=== PATIENT | male | born 1935 | race Caucasian/White ===

== ENCOUNTER → 2017-04-20 | Outpatient (CLI) | payer BC ==
--- NOTE | 2017-04-20 08:46 | DIAGNOSTIC IMAGING REPORT ---
ABDOMEN COMPLETE (US) CLINICAL HISTORY: 81 years-old Male with acute right upper quadrant abdominal pain. TECHNIQUE: Multiple real time sonographic images of the abdomen were obtained assessing matamoros-scale appearance. FINDINGS: PANCREAS: The pancreas is partially obscured by bowel gas. There are several cystic lesions noted within the pancreas involving the head and body, largest of which is within the pancreatic body, 1.7 x 1.6 x 0.9 cm. No pancreatic ductal dilation identified. No vascular pancreatic lesions are identified. There is moderate pancreatic atrophy. LIVER: Liver is mildly echogenic suggesting fatty infiltration. There is a focal cyst of the right hepatic lobe which measures up to 1.5 cm. There is no ascites. GALLBLADDER: There are several gallstones noted layering within the gallbladder lumen. No pericholecystic fluid collections or focal gallbladder wall thickening. Negative sonographic Villagran's sign. The common bile duct measures 0.8 cm. RIGHT KIDNEY: The right kidney measures 12.1 cm in length there is mildly increased echogenicity of the renal parenchyma suggesting chronic medical renal disease No nephrolithiasis or hydronephrosis. Small cyst of the interpolar right kidney is seen, 0.5 cm LEFT KIDNEY: The left kidney measures 8.6 cm in length and is moderately atrophic with increased parenchymal echogenicity. No nephrolithiasis or hydronephrosis. SPLEEN: The spleen measures 8.2 cm and is normal in echotexture. No focal lesions are identified. VASCULATURE: Proximal abdominal aorta measures 1.6 x 1.2 cm. Mid abdominal aorta measures 1.5 x 1.7 cm. Distal abdominal aorta measures 1.2 x 1.4 cm. Imaged IVC is unremarkable. IMPRESSION: 1. Cholelithiasis without sonographic evidence of acute cholecystitis. 2. Several cystic lesions of the pancreas are seen involving the body and tail measuring up to 1.7 cm suggesting sidebranch IPMN's. These findings can be further evaluated with CT pancreatic protocol if of further clinical concern. 3. Evidence of chronic medical renal disease with moderate left kidney atrophy. 4. Increased echogenicity of the liver suggests fatty infiltration with 1.5 cm right hepatic lobe cyst. The above report was generated using voice recognition software. It may contain grammatical, syntax or spelling errors. Electronically signed by: Roberto Yu M.D. 04/20/2017 8:44 AM Dictated Date/Time: 04/20/2017 8:37 AM
[2017-04-20 11:10] LABS: BASO % 0.3 %; BASO ABS # 0.02 K/uL (0-0.2); COMPLETE YES; EOS % 2.8 %; HEMATOCRIT 42.8 % (42-52); IG% 0.2 %; LYMPH % 29.6 %; LYMPH ABS # 1.93 K/uL (1.2-3.4); MEAN CELL VOLUME 92.8 fL (80-100); MEAN CORPUSCULAR HEMOGLOBIN 31.2 pg (25-34); MEAN CORPUSCULAR HGB CONC 33.6 g/dl (32-36); MEAN PLATELET VOLUME 10.3 fL (7.4-10.4); MONO % 10.1 %; PLATELET COUNT 198 K/uL (130-400); RED BLOOD COUNT 4.61 M/uL (4.7-6.1); WHITE BLOOD COUNT 6.52 K/uL (4.8-10.8)
[2017-04-20 11:28] LABS: ALT/SGPT 46 U/L (12-78); BLOOD UREA NITROGEN 19 mg/dl (7-18); BUN/CREATININE RATIO 16.8 (10-20); CALCIUM 8.8 mg/dl (8.5-10.1); CARBON DIOXIDE 29 mmol/L (21-32); CHLORIDE 107 mmol/L (98-107); GLUCOSE 100 mg/dl (70-99); POTASSIUM 3.9 mmol/L (3.5-5.1); SODIUM 142 mmol/L (136-145)
[2017-04-20 11:33] LABS: ALB/GLOB RATIO 1.2 (0.9-2); ALKALINE PHOSPHATASE 63 U/L (45-117); AST/SGOT 26 U/L (15-37)
== END | disposition home or self-care (01) ==
LOC: C.ULTRBC 07:27
PROVIDERS: ATTEND Family Medicine
DX: R10.11 Right upper quadrant pain (principal)

== ENCOUNTER → 2017-05-06 | Outpatient (CLI) | payer BC ==
[~2017-05-06] MED LIST: OPTIRAY 320 IV PRN
--- NOTE | 2017-05-06 13:29 | DIAGNOSTIC IMAGING REPORT ---
PANCREAS (ABDOMEN) COMBO HISTORY: Abnormal ultrasound . LESION OF PANCREAS TECHNIQUE: Multiaxial CT images of the abdomen were performed both before and after the intravenous administration of contrast to evaluate the pancreas. COMPARISON STUDY: Abdominal ultrasound 04/20/2017. FINDINGS: A few bibasilar linear densities favor subsegmental atelectasis or scarring. No suspicious lytic or blastic osseous lesions. Cholelithiasis. A 7 mm right adrenal gland nodule. A 1.7 cm right hepatic cyst. No solid hepatic masses. The spleen is unremarkable. A 5 mm hypodense lesion within the right kidney is too small to characterize but favors a cyst. The left kidney is mildly atrophic. No renal stones or hydronephrosis. The main portal vein and superior mesenteric vein are patent. No retroperitoneal lymphadenopathy. 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 The common bile duct and main pancreatic duct are normal in caliber. Mild inflammatory change surrounding a few of the small bowel loops within the left abdomen. No evidence for bowel obstruction. Colonic diverticulosis. No definite enhancing pancreatic masses. There are least 7 hypodense lesions within the pancreatic head and body. Dominant lesion within the uncinate process measures 1.5 cm. Some these are too small to characterize. The larger lesions do not appear to demonstrate significant enhancement and likely represent cystic lesions of the pancreas. 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 IMPRESSION: 1. Confirmation of the multiple hypodense lesions seen within the head and body of the pancreas which do not appear to enhance. 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 One year follow-up can be performed to ensure stability. 2. Cholelithiasis. 3. 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 4. Mild inflammatory change surrounding a few loops of small bowel within the left side the abdomen. This favors a mild enteritis. 5. Additional findings as described above. Electronically signed by: Moe Haji M.D. 05/06/2017 1:27 PM Dictated Date/Time: 05/06/2017 1:15 PM
== END | disposition home or self-care (01) ==
LOC: C.CTS 12:03
PROVIDERS: ATTEND Family Medicine
DX: K86.9 Disease of pancreas, unspecified (principal); K80.20 Calculus of gallbladder without cholecystitis without obstruction; I71.4 Abdominal aortic aneurysm, without rupture; K63.89 Other specified diseases of intestine

== ENCOUNTER 2017-08-27 13:41 | Emergency (ER) | payer BC ==
[~2017-08-27] VITALS: Ht 172.7 cm; Wt 77.9 kg
[2017-08-27 13:57] VITALS: TEMP 36.7; Ht 172.7 cm; Wt 77.9 kg
[2017-08-27] MEDS ORDERED: ALBUT/IPRATROP 3MG/0.5MG NEB 3 ML VIAL INH STA (15:46)
--- NOTE | 2017-08-27 15:49 | EMERGENCY ROOM VISIT NOTE ---
History Report prepared by Fox: Tati Salinas Under the Supervision of: Dr. Andrew North M.D. First contact with patient: 15:39 Chief Complaint: COUGH Stated Complaint: COUGHING Nursing Triage Summary: pt reports cough nonproductive, weakness . denies sorethroat, fevers, headaches History of Present Illness The patient is a 82 year old male who presents to the Emergency Room with complaints of a persistent cough that began 3-4 days ago. The patient states his coughing has been causing discomfort in around his sternum, but denies any chest pain. He denies having any fevers, chills, nausea, vomiting, or diarrhea. The patient denies a history of smoking, COPD, CHF, or any heart problems. Source of History: patient Onset: 3-4 days ago Position: other (global) Quality: other (coughing) Timing: other (persistent) Associated Symptoms: No fevers, No chills, No chest pain, No nausea, No vomiting, No diarrhea Review of Systems See HPI for pertinent positives and negatives. A total of ten systems were reviewed and were otherwise negative. Family History Patient reports no known family medical history. Social History Smoking Status: Never Smoker Smokeless Tobacco Use: No Alcohol Use: none Drug Use: none Marital Status: Housing Status: lives with significant other Occupation Status: retired Current/Historical Medications Scheduled Amlodipine/Benazepril (Lotrel 10MG/20MG), 1 CAP PO DAILY Atorvastatin (Lipitor), 20 MG PO QPM Azithromycin (Zithromax), 250 MG PO DAILY Coenzyme Q10 (Ubidecarenone) (Co Q10), 100 MG PO QAM Diphenhydramine Hcl (Benadryl), 50 MG PO HS Ferrous Sulfate (Ferrous Sulfate), 325 MG PO QAM Multivitamin (Multivitamin), 1 TAB PO DAILY Oseltamivir (Tamiflu), 75 MG PO BID Potassium Chloride (Micro-K Ext Rel), 5 MEQ PO QAM Allergies Coded Allergies: No Known Allergies (Unverified , 08/27/17) Physical Exam Vital Signs Date Time Temp Pulse Resp B/P (MAP) Pulse Ox O2 Delivery O2 Flow Rate FiO2 08/27/17 18:19 77 142/67 95 08/27/17 16:32 78 08/27/17 16:14 71 150/81 95 Room Air 08/27/17 16:14 94 Room Air 08/27/17 13:57 36.7 81 18 101/62 96 Room Air Physical Exam GENERAL: Awake, alert, well-appearing, in no distress HENT: Dry mucous membranes. Normocephalic, atraumatic. Oropharynx unremarkable. EYES: Normal conjunctiva. Sclera non-icteric. NECK: Supple. No nuchal rigidity. FROM. No JVD. RESPIRATORY: Scant wheezes at bases otherwise clear. CARDIAC: Regular rate, normal rhythm. Extremities warm and well perfused. Pulses equal. ABDOMEN: Soft, non-distended. No tenderness to palpation. No rebound or guarding. No masses. RECTAL: Deferred. MUSCULOSKELETAL: Chest examination reveals no tenderness. The back is symmetrical on inspection without obvious abnormality. There is no CVA tenderness to palpation. No joint edema. LOWER EXTREMITIES: Calves are equal size bilaterally and non-tender. No edema. No discoloration. NEURO: Normal sensorium. No sensory or motor deficits noted. SKIN: No rash or jaundice noted. Medical Decision & Procedures ER Provider Diagnostic Interpretation: Radiology results as stated below per my review and radiologist interpretation: CHEST ONE VIEW PORTABLE CLINICAL HISTORY: Chest pain. COMPARISON STUDY: No previous studies for comparison. FINDINGS: Lung volumes are normal. No pneumothorax or pleural effusion is present. Linear left basilar opacity is suggestive of atelectasis. There is no evidence of pulmonary edema. Cardiac size is normal. Patient is mildly rotated. There is no evidence of pulmonary edema. IMPRESSION: No acute cardiopulmonary findings. Electronically signed by: Keith Hassan M.D. 08/27/2017 4:30 PM Dictated Date/Time: 08/27/2017 4:29 PM Laboratory Results 08/27/17 16:30 Red Blood Count 4.81, Mean Corpuscular Volume 92.1, Mean Corpuscular Hemoglobin 31.2, Mean Corpuscular Hemoglobin Concent 33.9, Mean Platelet Volume 10.4, Neutrophils (%) (Auto) 55.9, Lymphocytes (%) (Auto) 23.5, Monocytes (%) (Auto) 17.9, Eosinophils (%) (Auto) 1.9, Basophils (%) (Auto) 0.5, Neutrophils # (Auto ) 2.09, Lymphocytes # (Auto) 0.88, Monocytes # (Auto) 0.67, Eosinophils # (Auto ) 0.07, Basophils # (Auto) 0.02 08/27/17 16:30 Test 08/27/17 16:30 White Blood Count 3.74 K/uL (4.8-10.8) Red Blood Count 4.81 M/uL (4.7-6.1) Hemoglobin 15.0 g/dL (14.0-18.0) Hematocrit 44.3 % (42-52) Mean Corpuscular Volume 92.1 fL (80-100) Mean Corpuscular Hemoglobin 31.2 pg (25-34) Mean Corpuscular Hemoglobin Concent 33.9 g/dl (32-36) Platelet Count 152 K/uL (130-400) Mean Platelet Volume 10.4 fL (7.4-10.4) Neutrophils (%) (Auto) 55.9 % Lymphocytes (%) (Auto) 23.5 % Monocytes (%) (Auto) 17.9 % Eosinophils (%) (Auto) 1.9 % Basophils (%) (Auto) 0.5 % Neutrophils # (Auto) 2.09 K/uL (1.4-6.5) Lymphocytes # (Auto) 0.88 K/uL (1.2-3.4) Monocytes # (Auto) 0.67 K/uL (0.11-0.59) Eosinophils # (Auto) 0.07 K/uL (0-0.5) Basophils # (Auto) 0.02 K/uL (0-0.2) RDW Standard Deviation 49.8 fL (36.4-46.3) RDW Coefficient of Variation 14.6 % (11.5-14.5) Immature Granulocyte % (Auto) 0.3 % Immature Granulocyte # (Auto) 0.01 K/uL (0.00-0.02) Anion Gap 8.0 mmol/L (3-11) Est Creatinine Clear Calc Drug Dose 41.5 ml/min Estimated GFR () 56.7 Estimated GFR (Non- 48.9 BUN/Creatinine Ratio 12.1 (10-20) Calcium Level 8.4 mg/dl (8.5-10.1) Total Bilirubin 0.4 mg/dl (0.2-1) Direct Bilirubin < 0.1 mg/dl (0-0.2) Aspartate Amino Transf (AST/SGOT) 56 U/L (15-37) Alanine Aminotransferase (ALT/SGPT) 76 U/L (12-78) Alkaline Phosphatase 56 U/L (45-117) Troponin I < 0.015 ng/ml (0-0.045) Total Protein 7.2 gm/dl (6.4-8.2) Albumin 3.5 gm/dl (3.4-5.0) Lipase 212 U/L (73-393) Influenza Type A Antigen POS for Influ A (NEG) Influenza Type B Antigen Neg for Influ B (NEG) Laboratory results reviewed by me Medications Administered Medications (Trade) Dose Ordered Sig/Roman Route Start Time Stop Time Status Last Admin Dose Admin Albuterol/ Ipratropium (Duoneb) 3 ml NOW STAT INH 08/27/17 15:46 08/27/17 15:49 DC 08/27/17 16:36 3 ML Sodium Chloride 1,000 ml @ 999 mls/hr Q1H1M STAT IV 08/27/17 15:56 08/27/17 16:56 DC 08/27/17 16:37 999 MLS/HR Azithromycin (Zithromax Tab) 500 mg NOW ONCE PO 08/27/17 17:45 08/27/17 17:46 DC 08/27/17 17:51 500 MG Oseltamivir Phosphate (Tamiflu Cap) 75 mg NOW STAT PO 08/27/17 17:36 08/27/17 17:39 DC 08/27/17 17:50 75 MG Albuterol (Ventolin Hfa Inhaler) 2 puffs NOW ONCE INH 08/27/17 17:45 08/27/17 17:46 DC 08/27/17 17:52 2 PUFFS ECG Indication: other (cough) Rate (beats per minute): 67 Rhythm: normal sinus Findings: no acute ischemic change, other (normal axis) ED Course 1544: The patient was evaluated in room C2. A complete history and physical exam was performed. Medical Decision I reviewed the patient's past medical history, medications, and the nursing notes as described above. The patient's presentation and history were concerning for pneumonia, bronchitis , ACS, CHF, PE, and URI. The patient is an 82-year-old gentleman who presents emergency department with cough congestion and shortness of breath per hpi. Arrival the patient is in no acute distress, afebrile stable vital signs. On exam the patient has scant wheezes at the bases but otherwise clear. WBC 3.9. Influenza A positive. Labs otherwise unremarkable. Chest x-ray negative for pneumonia. Patient feeling improved after nebulizer. Will give MDI for home. Additionally given the patient's age and persistent cough will treat with Azithromycin. Influenza A also positive and question of symptoms within 48 hours. Thus, we'll treat with Tamiflu. Patient counseled strict return instructions given his age and his positive Flu. PCP f/u. Findings and plan for follow-up reviewed with patient. Patient agreeable and d/c'd per discharge instructions. Medication Reconcilliation Current Medication List: was personally reviewed by me Impression Primary Impression: Acute bronchitis Additional Impression: Influenza A Scribe Attestation The scribe's documentation has been prepared under my direction and personally reviewed by me in its entirety. I confirm that the note above accurately reflects all work, treatment, procedures, and medical decision making performed by me. Departure Information Dispostion Home / Self-Care Prescriptions Oseltamivir (Tamiflu) 75 Mg Cap 75 MG PO BID for 5 Days, #10 CAP Prov: Andrew North M.D. 08/27/17 Azithromycin (Zithromax) 250 Mg Tab 250 MG PO DAILY, #4 TAB Prov: Andrew North M.D. 08/27/17 Referrals Fortino Mitchell MD (PCP) Forms HOME CARE DOCUMENTATION FORM, IMPORTANT VISIT INFORMATION Patient Instructions ED Bronchitis Asthmatic, ED Flu, My [facility] Additional Instructions Please follow up with your primary care physician on Wednesday for re-evaluation. You were found to have the flu as well as a likely bronchitis. Otherwise, your exam, EKG, chest xray, and lab results did not show signs of an emergent condition at this time. Tamiflu and Azithromycin as directed. Drink plenty of fluids to ensure hydration. Return to the emergency department for worsening symptoms as described in the accompanying instructions. Problem Qualifiers
[2017-08-27] MEDS ORDERED: SODIUM CHLORIDE 0.9% 1000ML 1,000 ML IV STA (15:56)
[2017-08-27] MEDS ORDERED: COEN1CAP28 PO (16:03)
[2017-08-27] MEDS ORDERED: POTA10CA28 PO (16:03)
[2017-08-27] MEDS ORDERED: MULT-506 PO (16:03)
[2017-08-27] MEDS ORDERED: AMLO10CA PO (16:03)
[2017-08-27] MEDS ORDERED: ATOR-22 PO (16:03)
[2017-08-27] MEDS ORDERED: FERR1TAB62 PO (16:03)
[2017-08-27] MEDS ORDERED: DIPH25CA5 PO (16:03)
[2017-08-27 16:14] VITALS: O2SAT 94
--- NOTE | 2017-08-27 16:31 | DIAGNOSTIC IMAGING REPORT ---
CHEST ONE VIEW PORTABLE CLINICAL HISTORY: Chest pain. COMPARISON STUDY: No previous studies for comparison. FINDINGS: Lung volumes are normal. No pneumothorax or pleural effusion is present. Linear left basilar opacity is suggestive of atelectasis. There is no evidence of pulmonary edema. Cardiac size is normal. Patient is mildly rotated. There is no evidence of pulmonary edema. IMPRESSION: No acute cardiopulmonary findings. Electronically signed by: Keith Hassan M.D. 08/27/2017 4:30 PM Dictated Date/Time: 08/27/2017 4:29 PM
[2017-08-27 17:03] LABS: BASO % 0.5 %; BASO ABS # 0.02 K/uL (0-0.2); EOS % 1.9 %; EOS ABS # 0.07 K/uL (0-0.5); HEMATOCRIT 44.3 % (42-52); IG# 0.01 K/uL (0.00-0.02); LYMPH % 23.5 %; LYMPH ABS # 0.88 K/uL (1.2-3.4); MEAN CELL VOLUME 92.1 fL (80-100); MEAN CORPUSCULAR HEMOGLOBIN 31.2 pg (25-34); MEAN CORPUSCULAR HGB CONC 33.9 g/dl (32-36); MEAN PLATELET VOLUME 10.4 fL (7.4-10.4); MONO % 17.9 %; MONO ABS # 0.67 K/uL (0.11-0.59); NEUT % 55.9 %; NEUT ABS # 2.09 K/uL (1.4-6.5); PLATELET COUNT 152 K/uL (130-400); RED CELL DISTRIBUTION WIDTH CV 14.6 % (11.5-14.5); RED CELL DISTRIBUTION WIDTH SD 49.8 fL (36.4-46.3); WHITE BLOOD COUNT 3.74 K/uL (4.8-10.8)
[2017-08-27 17:15] LABS: ALBUMIN 3.5 gm/dl (3.4-5.0); ALKALINE PHOSPHATASE 56 U/L (45-117); ALT/SGPT 76 U/L (12-78); AST/SGOT 56 U/L (15-37); BLOOD UREA NITROGEN 16 mg/dl (7-18); CALCIUM 8.4 mg/dl (8.5-10.1); CARBON DIOXIDE 26 mmol/L (21-32); CREATININE 1.35 mg/dl (0.60-1.40); GLUCOSE 83 mg/dl (70-99); LIPASE 212 U/L (73-393); POTASSIUM 3.9 mmol/L (3.5-5.1); SODIUM 138 mmol/L (136-145)
[2017-08-27 17:20] LABS: TOTAL PROTEIN 7.2 gm/dl (6.4-8.2)
[2017-08-27 17:33] LABS: INFLUENZA B ANTIGEN Neg for Influ B (NEG)
[2017-08-27] MEDS ORDERED: OSELTAMIVIR PHOSPHATE 75 MG CAP PO STA (17:36)
[2017-08-27] MEDS ORDERED: AZIT250T PO (17:44)
[2017-08-27] MEDS ORDERED: OSEL75CA12 PO (17:44)
[2017-08-27] MEDS ORDERED: ALBUTEROL HFA 8 GM INHALER INH ONE (17:45)
[2017-08-27] MEDS ORDERED: AZITHROMYCIN 250 MG TAB PO ONE (17:45)
[2017-08-27 18:19] VITALS: BP 142/67; PULSE 77; O2SAT 95
== END 2017-08-27 18:20 | disposition home or self-care (01) ==
LOC: C.EDB 13:43 → C.EDC 18:20
DX: J20.9 Acute bronchitis, unspecified (principal); J11.1 Influenza due to unidentified influenza virus with other respiratory manifestations

== ENCOUNTER 2017-08-30 12:58 | Emergency (ER) | payer BC ==
[~2017-08-30] VITALS: Ht 172.7 cm; Wt 76.8 kg
[~2017-08-30 12:58] MED LIST changes: +AMLO10CA PO; +ATOR-22 PO; +AZIT250T PO; +COEN1CAP28 PO; +DIPH25CA5 PO; +FERR1TAB62 PO; +MULT-506 PO; -OPTIRAY 320 IV PRN; +OSEL75CA12 PO; +POTA10CA28 PO
[2017-08-30 13:03] VITALS: TEMP 36.9; Ht 172.7 cm; Wt 76.8 kg
[2017-08-30] MEDS ORDERED: SODIUM CHLORIDE 0.9% 500ML 500 ML IV STA (13:13)
--- NOTE | 2017-08-30 13:37 | DIAGNOSTIC IMAGING REPORT ---
CHEST ONE VIEW PORTABLE CLINICAL HISTORY: EVALUATE ALTERED MENTAL STATUS/WEAKNESS COMPARISON STUDY: 08/27/2017 FINDINGS: Minimal platelike atelectasis left base unchanged from the prior study. Lungs otherwise appear clear. Diaphragms are smooth. IMPRESSION: No acute process. No change from the prior exam. The above report was generated using voice recognition software. It may contain grammatical, syntax or spelling errors. Electronically signed by: Finn Ferrer M.D. 08/30/2017 1:35 PM Dictated Date/Time: 08/30/2017 1:34 PM
--- NOTE | 2017-08-30 13:57 | EMERGENCY ROOM VISIT NOTE ---
History Report prepared by Fox: iLlliana Wright Under the Supervision of: Dr. Meek Ferrera M.D. First contact with patient: 13:06 Chief Complaint: COUGH Stated Complaint: COUGH, SHAKES History of Present Illness The patient is an 82 year old male who presents to the Emergency Room with complaints of persistent flu symptoms starting around 1 week ago. The patient was seen in the ED 3 days ago and diagnosed with influenza A. He had a negative chest X-ray. He was discharged home with an inhaler, Tamiflu, and Zithromax. His symptoms have not improved or worsened over the past 3 days. He is still coughing, but not as much. He is feeling shaky. He denies any fever, vomiting, or diarrhea. He has been eating and drinking well. He had his flu shot this season. His has had flu symptoms also. He denies any history of pneumonia or lung disease. Source of History: patient Onset: 1 week ago Position: other (global) Quality: other (flu symptoms) Timing: other (persistent) Associated Symptoms: + cough, No fevers, No vomiting, No diarrhea Note: Pt reports feeling shaky. Review of Systems See HPI for pertinent positives & negatives. A total of 10 systems reviewed and were otherwise negative. Past Medical & Surgical Medical Problems: (1) Hypertension Family History FH: heart disease Hypertension Social History Smoking Status: Never Smoker Alcohol Use: occasionally Drug Use: none Marital Status: Housing Status: lives with significant other Occupation Status: retired Current/Historical Medications Scheduled Amlodipine/Benazepril (Lotrel 10MG/20MG), 1 CAP PO DAILY Atorvastatin (Lipitor), 20 MG PO QPM Azithromycin (Zithromax), 250 MG PO DAILY Coenzyme Q10 (Ubidecarenone) (Co Q10), 100 MG PO QAM Diphenhydramine Hcl (Benadryl), 50 MG PO HS Ferrous Sulfate (Ferrous Sulfate), 325 MG PO QAM Multivitamin (Multivitamin), 1 TAB PO DAILY Oseltamivir (Tamiflu), 75 MG PO BID Potassium Chloride (Micro-K Ext Rel), 5 MEQ PO QAM Allergies Coded Allergies: No Known Allergies (Unverified , 08/30/17) Physical Exam Vital Signs Date Time Temp Pulse Resp B/P (MAP) Pulse Ox O2 Delivery O2 Flow Rate FiO2 08/30/17 14:31 76 20 127/69 94 Room Air 08/30/17 13:51 83 08/30/17 13:47 95 Room Air 08/30/17 13:03 36.9 95 18 142/80 93 Room Air Physical Exam GENERAL: Patient is in no acute distress. HEENT: No acute trauma, normocephalic atraumatic, mucous membranes moist, no nasal congestion, no scleral icterus. NECK: No stridor, no adenopathy, no meningismus, trachea is midline. LUNGS: Clear to auscultation bilaterally, no wheeze, no rhonchi, breath sounds equal. HEART: Without murmurs gallops or rubs, regular rate and rhythm. ABDOMEN: Soft, nontender, bowel sounds positive, no hernias, no peritonitis. EXTREMITIES: No cyanosis or edema, full range of motion of all the joints without pain or difficulty, no signs for acute trauma. NEUROLOGIC: Oriented x 3, no acute motor or sensory deficits, no focal weakness. SKIN: No rash, no jaundice, no diaphoresis. Medical Decision & Procedures ER Provider Diagnostic Interpretation: X-ray results as stated below per interpretation by me and the radiologist: CHEST ONE VIEW PORTABLE CLINICAL HISTORY: EVALUATE ALTERED MENTAL STATUS/WEAKNESS COMPARISON STUDY: 08/27/2017 FINDINGS: Minimal platelike atelectasis left base unchanged from the prior study. Lungs otherwise appear clear. Diaphragms are smooth. IMPRESSION: No acute process. No change from the prior exam. The above report was generated using voice recognition software. It may contain grammatical, syntax or spelling errors. Electronically signed by: Finn Ferrer M.D. 08/30/2017 1:35 PM Dictated Date/Time: 08/30/2017 1:34 PM Laboratory Results 08/30/17 13:30 Red Blood Count 4.63, Mean Corpuscular Volume 92.0, Mean Corpuscular Hemoglobin 31.5, Mean Corpuscular Hemoglobin Concent 34.3, Mean Platelet Volume 10.0, Neutrophils (%) (Auto) 55.7, Lymphocytes (%) (Auto) 26.8, Monocytes (%) (Auto) 13.3, Eosinophils (%) (Auto) 3.3, Basophils (%) (Auto) 0.7, Neutrophils # (Auto ) 2.51, Lymphocytes # (Auto) 1.21, Monocytes # (Auto) 0.60, Eosinophils # (Auto ) 0.15, Basophils # (Auto) 0.03 08/30/17 13:30 Test 08/30/17 13:30 08/30/17 14:27 White Blood Count 4.51 K/uL (4.8-10.8) Red Blood Count 4.63 M/uL (4.7-6.1) Hemoglobin 14.6 g/dL (14.0-18.0) Hematocrit 42.6 % (42-52) Mean Corpuscular Volume 92.0 fL (80-100) Mean Corpuscular Hemoglobin 31.5 pg (25-34) Mean Corpuscular Hemoglobin Concent 34.3 g/dl (32-36) Platelet Count 174 K/uL (130-400) Mean Platelet Volume 10.0 fL (7.4-10.4) Neutrophils (%) (Auto) 55.7 % Lymphocytes (%) (Auto) 26.8 % Monocytes (%) (Auto) 13.3 % Eosinophils (%) (Auto) 3.3 % Basophils (%) (Auto) 0.7 % Neutrophils # (Auto) 2.51 K/uL (1.4-6.5) Lymphocytes # (Auto) 1.21 K/uL (1.2-3.4) Monocytes # (Auto) 0.60 K/uL (0.11-0.59) Eosinophils # (Auto) 0.15 K/uL (0-0.5) Basophils # (Auto) 0.03 K/uL (0-0.2) RDW Standard Deviation 49.5 fL (36.4-46.3) RDW Coefficient of Variation 14.7 % (11.5-14.5) Immature Granulocyte % (Auto) 0.2 % Immature Granulocyte # (Auto) 0.01 K/uL (0.00-0.02) Anion Gap 10.0 mmol/L (3-11) Est Creatinine Clear Calc Drug Dose 56.6 ml/min Estimated GFR () 82.4 Estimated GFR (Non- 71.1 BUN/Creatinine Ratio 17.5 (10-20) Calcium Level 9.1 mg/dl (8.5-10.1) Magnesium Level 2.4 mg/dl (1.8-2.4) Total Bilirubin 0.5 mg/dl (0.2-1) Aspartate Amino Transf (AST/SGOT) 34 U/L (15-37) Alanine Aminotransferase (ALT/SGPT) 63 U/L (12-78) Alkaline Phosphatase 60 U/L (45-117) Total Protein 7.1 gm/dl (6.4-8.2) Albumin 3.6 gm/dl (3.4-5.0) Globulin 3.5 gm/dl (2.5-4.0) Albumin/Globulin Ratio 1.0 (0.9-2) Bedside Lactic Acid Venous 1.06 mmol/L (0.90-1.70) Laboratory results reviewed by me. Medications Administered Medications (Trade) Dose Ordered Sig/Roman Route Start Time Stop Time Status Last Admin Dose Admin Sodium Chloride 500 ml @ 999 mls/hr Q31M STAT IV 08/30/17 13:13 08/30/17 13:43 DC 08/30/17 13:47 999 MLS/HR ED Course 1308: The patient was evaluated in room B10. A complete history and physical exam was performed. 1313: NSS 500 ml @ 999 mls/hr IV. 1435: Reevaluated the patient. Discussed results and discharge instructions: he verbalized understanding and agreement. The patient is ready for discharge. Medical Decision Differential diagnoses considered include influenza, pneumonia, bacteremia, dehydration, electrolyte imbalance, anemia. There is no leukocytosis or concerning anemia. No significant electrolyte abnormality, kidney failure or hepatitis. Lactic acid level is not elevated making sepsis less likely. Chest x-ray does not show pneumonia. On exam, the patient was not febrile or toxic. I reviewed the patient's workup from a few days ago. He does have influenza. He is here today, as he is not feeling all that much better and he has had some shaking. He had concerns for a bacterial infection. The patient was reassured that this all appears viral. I did order blood cultures, these are pending and we can call the patient if the results return positive. The patient should continue his Tamiflu, Zithromax and albuterol inhaler. Medication Reconcilliation Current Medication List: was personally reviewed by me Blood Pressure Screening Patient's blood pressure: Elevated blood pressure Blood pressure disposition: Elevated BP felt to be situational Impression Primary Impression: Influenza A Additional Impression: Weakness Scribe Attestation The scribe's documentation has been prepared under my direction and personally reviewed by me in its entirety. I confirm that the note above accurately reflects all work, treatment, procedures, and medical decision making performed by me. Departure Information Dispostion Home / Self-Care Referrals Fortino Mitchell MD (PCP) Forms HOME CARE DOCUMENTATION FORM, IMPORTANT VISIT INFORMATION Patient Instructions My [facility] Additional Instructions care as before finish all prescriptions return if worsening see armaan ricks this week for a recheck you may call here in 2 days for the blood culture results---[phone] Problem Qualifiers
[2017-08-30 14:00] LABS: BASO % 0.7 %; BASO ABS # 0.03 K/uL (0-0.2); EOS % 3.3 %; EOS ABS # 0.15 K/uL (0-0.5); HEMATOCRIT 42.6 % (42-52); HEMOGLOBIN 14.6 g/dL (14.0-18.0); IG# 0.01 K/uL (0.00-0.02); LYMPH % 26.8 %; LYMPH ABS # 1.21 K/uL (1.2-3.4); MEAN CORPUSCULAR HEMOGLOBIN 31.5 pg (25-34); MEAN CORPUSCULAR HGB CONC 34.3 g/dl (32-36); MONO % 13.3 %; NEUT % 55.7 %; NEUT ABS # 2.51 K/uL (1.4-6.5); PLATELET COUNT 174 K/uL (130-400); RED CELL DISTRIBUTION WIDTH CV 14.7 % (11.5-14.5); RED CELL DISTRIBUTION WIDTH SD 49.5 fL (36.4-46.3); WHITE BLOOD COUNT 4.51 K/uL (4.8-10.8)
[2017-08-30 14:19] LABS: ALBUMIN 3.6 gm/dl (3.4-5.0); CALCIUM 9.1 mg/dl (8.5-10.1); CREATININE 0.99 mg/dl (0.60-1.40); POTASSIUM 3.6 mmol/L (3.5-5.1)
[2017-08-30 14:22] LABS: TOTAL PROTEIN 7.1 gm/dl (6.4-8.2)
[2017-08-30 15:32] VITALS: BP 135/75; PULSE 79; O2SAT 94
== END 2017-08-30 15:20 | disposition home or self-care (01) ==
LOC: C.EDB 12:58
DX: J09.X2 Influenza due to identified novel influenza A virus with other respiratory manifestations (principal); I10 Essential (primary) hypertension; Z82.49 Family history of ischemic heart disease and other diseases of the circulatory system

== ENCOUNTER → 2017-11-29 | Outpatient (CLI) | payer BC ==
[~2017-11-29] MED LIST changes: +GADAVIST IV PRN; -OSEL75CA12 PO
[2017-11-29 17:30] LABS: BLOOD UREA NITROGEN 21 mg/dl (7-18); CREATININE 1.28 mg/dl (0.60-1.40)
--- NOTE | 2017-11-30 11:19 | DIAGNOSTIC IMAGING REPORT ---
ABDOMEN COMBO CLINICAL HISTORY: 82 years-old Male presenting with PANCREATIC CYST. TECHNIQUE: Multisequence, multiplanar MR imaging of the abdomen was performed before and after the administration of intravenous contrast. IV contrast: 7.5 mL of Gadavist. COMPARISON: CT from 05/06/2017. FINDINGS: Localizer images: Unremarkable. Lung bases: Lungs and pleural spaces clear. Normal heart size. No pericardial or pleural effusion. Liver: Normal morphology. Well-defined T2 hyperintense nonenhancing lesion compatible with hepatic cyst. Hepatic fat fraction measures 3.2%, which is normal. Patent hepatic vasculature. Accessory left hepatic artery arising from the left gastric artery. Biliary: No intrahepatic or extrahepatic biliary ductal dilatation. Gallbladder contains gallstones. Pancreas: Diffuse moderate parenchymal atrophy. Redemonstration of multiple T2 hyperintense nonenhancing lesions in the pancreatic parenchyma, the largest in the region of the pancreatic head/uncinate process measuring 19 mm. These are unchanged from prior exam allowing for differences in modalities. No pancreatic ductal dilatation. No suspicious nodular enhancement. Spleen: Normal. Adrenal glands: Normal. Kidneys and ureters: Cortical atrophy of the left kidney suggested. No hydronephrosis. Bowel: Diverticulosis of the distal descending and sigmoid colon. Moderate stool burden noted throughout the colon. Peritoneal cavity: No free fluid or intraperitoneal gas. Lymph nodes: No enlarged lymph nodes in the abdomen. Vasculature: Aorta and IVC patent and normal in caliber. Abdominal wall: Normal. Musculoskeletal: Normal. IMPRESSION: 1. 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 No worrisome features. Based on the size and appearance, dedicated yearly pancreas CT or MR recommended for the first 2 years since their identification for surveillance subsequently lengthening surveillance if no interval change per Maryuri criteria. Electronically signed by: Nadir Peng M.D. 11/30/2017 11:18 AM Dictated Date/Time: 11/30/2017 11:07 AM
== END | disposition home or self-care (01) ==
LOC: C.MRIBC 14:59
PROVIDERS: ATTEND Internal Medicine Gastroenterology
DX: Z01.812 Encounter for preprocedural laboratory examination (principal); K86.2 Cyst of pancreas

== ENCOUNTER 2021-05-29 10:18 | Observation (INO) ==
[2021-05-29] MEDS ORDERED: SODIUM CHLORIDE 0.9% 1000ML 500 ML IV ONE (10:29)
--- NOTE | 2021-05-29 10:35 | Emergency Department Note ---
History of Present Illness General Chief complaint: Weakness Stated complaint: WEAKNESS Time Seen by Provider: 05/29/21 10:22 Source: patient, EMS, RN notes reviewed and old records reviewed Mode of arrival: EMS Limitations: no limitations History of Present Illness This patient is a 85-year-old male who comes in after feeling weak. He was in his usual state of health went to the [place] today for routine blood work went home and went to the bathroom while he was in the bathroom he got extremely weak and sweaty he laid down on the floor there is no trauma he was incontinent of stool x3 he had a large amount of diarrhea which is nonmelanotic nonbloody. He did not have diarrhea prior. He says he feels pretty good right now there is no focal numbness or weakness. There is no headache. No chest pain shortness breath or palpitation no problems with urination. No abdominal pain. He has had the Covid vaccine x3. No difficulty speaking or swallowing. He is on no blood thinners. Home Medications Medication Instructions Recorded Confirmed Type coenzyme Q10 100 mg capsule (Co 100 mg PO QAM 08/10/19 05/29/21 History Q-10) amlodipine 10 mg-benazepril 20 mg 1 cap PO HS 02/24/20 05/29/21 History capsule (Lotrel) atorvastatin 20 mg tablet (Lipitor) 20 mg PO HS 02/24/20 05/29/21 History ferrous sulfate 325 mg (65 mg 325 mg PO QAM 02/24/20 05/29/21 History iron) tablet (iron) ibrqqyjetvkc-wgykvhhk-dukgwv 1 tab PO QAM 02/24/20 05/29/21 History tablet (Multivitamin 50 Plus) potassium chloride 10 mEq 10 meq PO QAM 02/24/20 05/29/21 History tablet,extended release (K-Tab) diphenhydramine HCl 50 mg capsule 50 mg PO HS PRN 02/28/20 05/29/21 History docusate sodium 100 mg capsule 100 mg PO QPM PRN 05/29/21 05/29/21 History Allergies Allergy/AdvReac Type Severity Reaction Status Date / Time No Known Drug Allergies Allergy Verified 05/29/21 12:35 Past Med/Surg History Medical History Abnormality detected on rectal examination of prostate BPH with obstruction/lower urinary tract symptoms Elevated prostate specific antigen (PSA) No pertinent past medical history Surgical History History of bladder surgery removal of tumor-2007 Family History Father Stroke Hypertension Other No family history of bleeding disorder Social History Smoking Status: Never smoker Second Hand Exposure: No; Hx Alcohol Use: Yes Hx Substance Use: No marital status: current occupational status: employed current occupation: [employer] Feels Safe at Home: Yes Review of Systems A total of 10 systems reviewed and were otherwise negative Physical Exam Vital Signs Vital Signs - 24 hr 05/29/21 10:38 05/29/21 10:44 05/29/21 11:09 Temperature 36.6 C 36.6 C Temperature Source Oral Oral Pulse Rate 68 Pulse Rate [Apical] Pulse Strength Normal Respiratory Rate 20 20 Respiratory Effort / Characteristics Respiratory Depth Normal Normal Blood Pressure 130/92 Blood Pressure [Right Arm] 130/92 Blood Pressure Mean 104 Blood Pressure Mean [Right Arm] 104 Blood Pressure Position Lying Pulse Oximetry 96 96 96 Oxygen Delivery Method Room Air Room Air Room Air Sepsis Recent Fever Within 48 Hours No Sepsis New/Unexplained Change in Mental Status No Sepsis Action Taken by Nursing No Action Required 05/29/21 11:10 05/29/21 12:33 Temperature Temperature Source Pulse Rate Pulse Rate [Apical] 81 Pulse Strength Respiratory Rate 18 Respiratory Effort / Characteristics Non-Labored Respiratory Depth Normal Blood Pressure Blood Pressure [Right Arm] 172/92 H Blood Pressure Mean Blood Pressure Mean [Right Arm] 118 Blood Pressure Position Pulse Oximetry 98 Oxygen Delivery Method Room Air Room Air Sepsis Recent Fever Within 48 Hours Sepsis New/Unexplained Change in Mental Status Sepsis Action Taken by Nursing General: Well developed well nourished older male who in no acute distress, breathing comfortably on room air. Normal speech HEENT: Normal cephalic atraumatic. Pupils are equal round and reactive to light. Extraocular movements are intact. Oropharynx is pink with moist mucous membranes. No swelling of the mouth lips or tongue. Neck: Supple with a midline trachea. No meningeal signs or stiffness, no JVD or bruits. No Stridor. Chest: Clear to auscultation bilaterally. No wheezes or rhonchi. No increased work of breathing. Heart: Regular rate and rhythm without murmurs or gallops. Abdomen: Soft nontender, nondistended without rebound guarding or rigidity. Extremities: No cyanosis clubbing or edema. No calf tenderness or assymetry Spine/Back. Non tender to palpation. No CVA tenderness Skin: Good turgor without rashes. Neurologic exam: Cranial nerves two through 12 are intact. Motor and sensation are intact and symmetrical throughout. Course Administered Medications Discontinued Medications Sodium Chloride (Nss 1000ml) 500 mls @ 999 mls/hr IV .Q31M ONE Stop: 05/29/21 10:59 Last Infusion: 05/29/21 13:28 Dose: 0 mls/hr Documented by: [id number] Infusion: 05/29/21 11:50 Dose: 0 mls/hr Documented by: [id number] Admin: 05/29/21 11:17 Dose: 999 mls/hr Documented by: [id number] Lactated Ringer's (Lr) 500 mls @ 999 mls/hr IV .Q31M ONE Stop: 05/29/21 13:20 Last Infusion: 05/29/21 14:00 Dose: 0 mls/hr Documented by: [id number] Admin: 05/29/21 13:28 Dose: 999 mls/hr Documented by: [id number] Medical Decision Making Differential Diagnosis Syncope, near syncope, arrhythmia, dehydration, electrolyte or metabolic abnormality, diarrhea, intra-abdominal process, CVA Medical Records Attestation: I reviewed the patient's medical records. Home Medications Current Medication List: was personally reviewed by me Laboratory Data Attestation: I reviewed the patient's lab results. Result diagrams: 05/29/21 11:00 05/29/21 11:00 Lab Results 05/29/21 05/29/21 05/29/21 Range/Units 11:00 11:00 12:30 WBC 10.51 (4.8-10.8) K/uL RBC 5.12 (4.7-6.1) M/uL Hgb 16.0 (14.0-18.0) g/dL Hct 47.3 (42-52) % MCV 92.4 (80-100) fL MCH 31.3 (25-34) pg MCHC 33.8 (32-36) g/dL RDW Std Deviation 52.2 H (36.4-46.3) fL RDW Coeff of Paresh 15.3 H (11.5-14.5) % Plt Count 213 (130-400) K/uL MPV 10.0 (7.4-10.4) fL Immature Gran % (Auto) 0.3 % Neut % (Auto) 78.0 % Lymph % (Auto) 12.1 % [place] % (Auto) 8.4 % Eos % (Auto) 1.0 % Baso % (Auto) 0.2 % Neut # (Auto) 8.21 H (1.4-6.5) K/uL Lymph # (Auto) 1.27 (1.2-3.4) K/uL [place] # (Auto) 0.88 H (0.11-0.59) K/uL Eos # (Auto) 0.10 (0-0.5) K/uL Baso # (Auto) 0.02 (0-0.2) K/uL Immature Gran # (Auto) 0.03 H (0.00-0.02) K/uL Sodium 140 (136-145) mmol/L Potassium 4.1 (3.5-5.1) mmol/L Chloride 107 (98-107) mmol/L Carbon Dioxide 27 (21-32) mmol/L Anion Gap 6.0 (3-11) BUN 21 H (7-18) mg/dl Creatinine 1.61 H (0.6-1.4) mg/dl Est Cr Clr Drug Dosing 33.4 ml/min Est GFR ( Amer) 44.8 ml/min Est GFR (Non-Af Amer) 38.7 ml/min BUN/Creatinine Ratio 13.1 (10-20) Glucose 149 H (70-99) mg/dl Calcium 9.3 (8.5-10.1) mg/dl Magnesium 2.4 (1.8-2.4) mg/dl Total Bilirubin 0.8 (0.2-1) mg/dl AST 22 (15-37) U/L ALT 31 (12-78) U/L Alkaline Phosphatase 57 (45-117) U/L Troponin I < 0.015 (0-0.045) ng/ml Total Protein 7.1 (6.4-8.2) gm/dl Albumin 3.8 (3.4-5.0) gm/dl Globulin 3.3 (2.5-4.0) gm/dl Albumin/Globulin Ratio 1.2 (0.9-2) TSH 2.690 (0.300-4.500) uIu/ml Urine Color Yellow Urine Appearance Clear (Clear) Urine pH 6.5 (4.5-7.5) Ur Specific [place] 1.009 (1.000-1.030) Urine Protein Negative (Negative) Urine Glucose (UA) Negative (Negative) Urine Ketones Negative (Negative) Urine Blood Negative (Negative) Urine Nitrite Negative (Negative) Urine Bilirubin Negative (Negative) Urine Urobilinogen Negative (Negative) Ur Leukocyte Esterase Negative (Negative) Imaging Data Attestation: I personally reviewed and interpreted this imaging study as follows: My Impression: Chest x-rayno acute infiltrate, failure, pneumothorax seen Radiologist's Impression: Chest X-Ray 05/29/21 10:30 XR chest 1V portable CLINICAL HISTORY: Syncope. COMPARISON STUDY: Chest radiograph February 28, 2020. FINDINGS: Lung volumes are normal. Lungs are clear. There is no pneumothorax or pleural effusion. Cardiac size is normal. Mediastinal contours are normal. There is no evidence for pulmonary edema. IMPRESSION: No acute cardiopulmonary findings. ACT 112: Negative or not required by law. Electronically signed by: Keith Hassan M.D. 05/29/2021 11:[address] 05/29/21 10:30 CT OF THE HEAD WITHOUT CONTRAST CLINICAL HISTORY: weakness COMPARISON STUDY: Head CT April 22, 2018. CT DOSE: 614.27 mGy.cm TECHNIQUE: Helical axial images of the head were obtained without IV contrast. Automated exposure control was utilized for the study. A dose lowering technique was utilized adhering to the principles of ALARA. FINDINGS: No acute intracranial hemorrhage, midline shift or mass effect is present. The ventricular system is unremarkable. A 9 mm hypodensity within the left centrum semiovale ovale on axial image 17 of 32 is new since head CT of April 22, 2018. The basal cisterns are patent. No extra-axial collections are present. There are no findings to suggest acute dural sinus thrombosis or acute territorial infarct. No significant calvarial abnormalities are present. Visualized portions of the sinuses and mastoid air cells are clear. IMPRESSION: 1. No acute intracranial hemorrhage or mass effect. 2. 9 mm hypodensity within the left centrum semiovale ovale which is new since head CT of April 22, 2018. This could reflect an age indeterminate infarct or small vessel disease. ACT 112: Negative or not required by law. Electronically signed by: Keith Hassan M.D. 05/29/2021 11:47 AM KUB X-Ray 05/29/21 12:50 KUB HISTORY: Generalized abdominal pain. evaluate for obstruction or free air COMPARISON: MRCP 11/27/2020. FINDINGS: There are few borderline dilated gas-filled loops of small bowel within the abdomen measuring up to 3.2 cm in diameter. Calcification overlying the right L1 transverse process. This could be vascular or represent a renal calcification. No ureteral calculi. No pneumoperitoneum or pneumatosis. IMPRESSION: Borderline dilated gas-filled loops of small bowel within the abdomen. This could represent a mild ileus or low-grade partial small bowel obstruction. ACT 112: Negative or not required by law. Electronically signed by: Moe Haji M.D. 05/29/2021 1:59 PM ECG Data Attestation: I personally reviewed and interpreted this ECG as follows: Indication: + syncope and + weakness Rate (beats per minute): 86 Rhythm: + normal sinus ECG Intervals/blocks: + Normal QRS, + Normal QT and + Normal NC ECG [place]: + Normal ECG ST segments: + Nonspecific ST abnormalities ECG Findings: + Poor R wave progression and + Other (T wave flattening diffusely) Comparison ECG Date: from (02/24/20) Change: the following changes noted (T waves are flattened compared to previous) MDM Narrative This patient comes in after having weakness. On the toilet and got very sweaty and was incontinent of stool 3 times when he was on the ground. On exam he is covered in stool but has otherwise nonfocal exam. IV access was established and he was hydrated with normal saline EKG multiple blood testing was obtained. He was reassessed frequently.. Stool was not bloody or melanotic and it was guaiac negative. He has no significant electrolyte or metabolic abnormality. EKG shows some nonspecific findings with some T wave flattening but no ST segment elevation or depression. Troponin is negative. His BUN and creatinine are mildly elevated admitted there may be a prerenal or hydration component. CAT scan of his head does show a hypodensity on the left which is in a age- indeterminate infarct potentially. Given the patient's weakness I do think he needs to be admitted/observed and consulted the [facility] team to see him for these measures. Continuous cardiac monitoring: Orders placed in EMR for continuous cardiac monitoring. Upon interpretation patient noted to be normal sinus rhythm with a rate of 80 Impression & Plan Weakness, Diarrhea, DIVINA (acute kidney injury), Dehydration, Lab test negative for COVID-19 virus, Near syncope Discharge Plan Visit Data Chief Complaint: Weakness Stated Complaint: WEAKNESS ED Provider: Martinez Saldana Discharge Problem: Weakness, Diarrhea, DIVINA (acute kidney injury), Dehydration, Lab test negative for COVID-19 virus, Near syncope Patient Disposition: Admitted As Inpatient Discharge Instructions Interventions: ED Discharge Assessment Last Done: 05/29/21 16:08
--- NOTE | 2021-05-29 11:02 | XRay Report ---
XR chest 1V portable CLINICAL HISTORY: Syncope. COMPARISON STUDY: Chest radiograph February 28, 2020. FINDINGS: Lung volumes are normal. Lungs are clear. There is no pneumothorax or pleural effusion. Car diac size is normal. Mediastinal contours are normal. There is no evidence for pulmonary edema. IMPRESSION: No acute cardiopulmonary findings. ACT 112: Negative or not required by law. Electronically signed by: Keith Hassan M.D. 05/29/2021 11:01 AM
[2021-05-29 11:11] LABS: Basophils # (auto) 0.02 K/uL (0-0.2); Basophils % (auto) 0.2 %; Hematocrit (blood only) 47.3 % (42-52); Immature Granulocytes # (auto) 0.03 K/uL (0.00-0.02); Immature Granulocytes % (auto) 0.3 %; Lymphocytes # (auto) 1.27 K/uL (1.2-3.4); Lymphocytes % (auto) 12.1 %; Mean Corpuscular Hemoglobin 31.3 pg (25-34); Mean Corpuscular Hgb Conc 33.8 g/dL (32-36); Mean Corpuscular Volume 92.4 fL (80-100); Monocytes # (auto) 0.88 K/uL (0.11-0.59); Monocytes % (auto) 8.4 %; Neutrophils # (auto) 8.21 K/uL (1.4-6.5); Platelet Count 213 K/uL (130-400); RDW Coefficient of Variation 15.3 % (11.5-14.5); RDW Standard Deviation 52.2 fL (36.4-46.3); Red Blood Count 5.12 M/uL (4.7-6.1); White Blood Count 10.51 K/uL (4.8-10.8)
[2021-05-29 11:28] LABS: Alanine Aminotransferase 31 U/L (12-78); Albumin Level 3.8 gm/dl (3.4-5.0); Aspartate Aminotransferase 22 U/L (15-37); BUN Creatinine Ratio 13.1 (10-20); Blood Urea Nitrogen 21 mg/dl (7-18); Calcium 9.3 mg/dl (8.5-10.1); Carbon Dioxide 27 mmol/L (21-32); Chloride 107 mmol/L (98-107); Creatinine Clr Calc Pharmacy 33.4 ml/min; Est GFR (African American) 44.8 ml/min; Est GFR (Non-African American) 38.7 ml/min; Glucose 149 mg/dl (70-99); Magnesium 2.4 mg/dl (1.8-2.4); Potassium 4.1 mmol/L (3.5-5.1); Sodium 140 mmol/L (136-145)
[2021-05-29 11:38] LABS: Albumin Globulin Ratio 1.2 (0.9-2); Alkaline Phosphatase 57 U/L (45-117); Bilirubin,Total 0.8 mg/dl (0.2-1); Globulin 3.3 gm/dl (2.5-4.0); Total Protein 7.1 gm/dl (6.4-8.2); Troponin I < 0.015 ng/ml (0-0.045)
--- NOTE | 2021-05-29 11:48 | CT Scan Report ---
CT OF THE HEAD WITHOUT CONTRAST CLINICAL HISTORY: weakness COMPARISON STUDY: Head CT April 22, 2018. CT DOSE: 614.27 mGy.cm TECHNIQUE: Helical axial images of the head were obtained without IV contrast. Automated exposure con trol was utilized for the study. A dose lowering technique was utilized adhering to the principles o f ALARA. FINDINGS: No acute intracranial hemorrhage, midline shift or mass effect is present. The ventricular system is unremarkable. A 9 mm hypodensity within the left centrum semiovale ovale on axial image 17 of 32 is new since head CT of April 22, 2018. The basal cisterns are patent. No extra-axial collecti ons are present. There are no findings to suggest acute dural sinus thrombosis or acute territorial i nfarct. No significant calvarial abnormalities are present. Visualized portions of the sinuses and ma stoid air cells are clear. IMPRESSION: 1. No acute intracranial hemorrhage or mass effect. 2. 9 mm hypodensity within the left centrum semiovale ovale which is new since head CT of April 22, 2018. This could reflect an age indeterminate infarct or small vessel disease. ACT 112: Negative or not required by law. Electronically signed by: Keith Hassan M.D. 05/29/2021 11:47 AM
[2021-05-29 12:39] LABS: Appearance Urine Clear (Clear); Bilirubin Urine Negative (Negative); Blood Urine Negative (Negative); Color Urine Yellow; Glucose Urine UA Negative (Negative); Ketones Urine Negative (Negative); Leukocyte Esterase Urine Negative (Negative); Nitrite Urine Negative (Negative); Protein Urine Negative (Negative); Specific Gravity Urine 1.009 (1.000-1.030); Urobilinogen Urine Negative (Negative); pH Urine 6.5 (4.5-7.5)
[2021-05-29] MEDS ORDERED: LACTATED RINGER'S 500 ML IV ONE (12:50)
--- NOTE | 2021-05-29 13:09 | History & Physical Report ---
Date of Service May 29, 2021 Assessment & Plan (1) Diarrhea: Plan: Acute abrupt onset this morning- without abdominal pain or tenderness. Normal BM earlier - WBC-10.5, NLR 4:1 - Normal LFTs and bilirubin - TSH normal - associated with cold sweats and dizziness- ? VGE vs other - KUB- mild ileus or low-grade partial small bowel obstruction- MOM and senna - clear bland diet- follow with KUB - follow clinically- stool culture if continuous through today - UA negative (2) Hypovolemia: Plan: Secondary to number #1 - still with increase HR with position changes - LR bolous 500 ml x1- will total 1 liter of crystalloid - LR at 80 ml/hr x 1 liter - follow renal function and symptoms (3) DIVINA (acute kidney injury): Plan: Secondary to #1 and #2 - last BMP we have for comparison is from 2019- 0.9-1.1 - Continue to achieve euvolemia - follow renal function in morning - Hold KAVYA - UA negative for protein or blood (4) BPH with obstruction/lower urinary tract symptoms: Plan: Stable follows PSA levels with urology (5) Hypertension: Plan: Ranges from 120-140s - Continue to follow up with PCP- he is due to follow up next month with new provider- Dr. Garsia (6) HLD (hyperlipidemia): Plan: Continue atorvastatin 20 mg PO Qhs (7) CVA (cerebral vascular accident): Plan: CT of head today- 9 mm hypodensity within the left centrum semiovale ovale which is new since head CT of April 22, 2018. This could reflect an age indeterminate infarct or small vessel disease. - No symptoms and this incidental on today's exam - will get MRI and MRA of the neck with history of bladder tumor and elevated PSA as well - will place on asa 81 mg daily - continue with statin as above - Patient does have a history of nose bleeds that he had cauterized in the past for dryness- follow. (8) Blood glucose elevated: Plan: elevated blood glucose level without diagnosis of DM - a1c in the morning History of Present Illness Primary Care Provider: Liz Muniz, 85 YOM with past medical history of: HTN, HLD, iron deficiency anemia, BPH with LUTS, prostate nodule (declined biopsy), bladder tumor removed in 2005, nose bleeds cholelethiasis, pancreatic lesions. Patient comes to the emergency room today for loose stools x3 and feeling weak and light headed. The patient went out this morning for a routine follow up at the [facility] to get blood drawn. When he got home he went to the bathroom and reports he had a large normal bowel movement, upon getting up from that, the patient felt dizzy lightheaded, and started to get cold sweats. He laid himself on the floor. This was then followed by 3 large watery bowel movements that were brown in nature. He did not eat since yesterday. He has not had any fevers or chills other than with the cool sweats this morning. Denies any abdominal pain or discomfort, and denied any blood or mucous in the stools. He was out this week helping a neighbor move and has felt otherwise very well. In the EMD he was given 500 ml of crystalloid and had routine labs drawn, ECG, CXR and CT scan of the head performed. Hospitalist service was consulted for admission for syncope. The patient did not have any loss of consciousness. His HR 70-80 in bed, upon standing HR increased to 97. He did not have any dizziness at that time, and has not had any further loose stools. Patient will be observed overnight for any further loose stools continue to replace fluid loss in stools until Euvolemia. Follow exam and imaging for any abdominal pathology. His CT scan of his head did incidentally find a 9mm hypodensity of the left centrum semiovale which was new since 2018, further evaluate with MRI/MRA. Patient has had his COVID Vaccines and his COVID test on admission is: NEGATIVE Allergies Allergy/AdvReac Type Severity Reaction Status Date / Time No Known Drug Allergies Allergy Verified 05/29/21 12:35 Home Medications Medication Instructions Recorded Confirmed Type coenzyme Q10 100 mg capsule (Co 100 mg PO QAM 08/10/19 05/29/21 History Q-10) amlodipine 10 mg-benazepril 20 mg 1 cap PO HS 02/24/20 05/29/21 History capsule (Lotrel) atorvastatin 20 mg tablet (Lipitor) 20 mg PO HS 02/24/20 05/29/21 History ferrous sulfate 325 mg (65 mg 325 mg PO QAM 02/24/20 05/29/21 History iron) tablet (iron) fglmgjzbvqer-eapimskh-uwrtql 1 tab PO QAM 02/24/20 05/29/21 History tablet (Multivitamin 50 Plus) potassium chloride 10 mEq 10 meq PO QAM 02/24/20 05/29/21 History tablet,extended release (K-Tab) diphenhydramine HCl 50 mg capsule 50 mg PO HS PRN 02/28/20 05/29/21 History docusate sodium 100 mg capsule 100 mg PO QPM PRN 05/29/21 05/29/21 History Past Med/Surg History Medical History Abnormality detected on rectal examination of prostate BPH with obstruction/lower urinary tract symptoms Elevated prostate specific antigen (PSA) No pertinent past medical history Surgical History History of bladder surgery removal of tumor-2007 Family History Father Stroke Hypertension Other No family history of bleeding disorder Social History Smoking Status: Never smoker Second Hand Exposure: No; Hx Alcohol Use: Yes Alcohol type: beer and hard liquor Hx Substance Use: No Preferred Language: Bermudian Communication Ability: Effective Put In Beat Adjuster Required: No Beliefs That Will Affect Care: None marital status: Current Living Situation: Spouse Current Living Situation Comment: Lives with current occupational status: employed current occupation: [employer] Feels Safe at Home: Yes Safety Concerns: Feels Safe At This Time Assistive Devices: None Review of Systems Review of Systems: REVIEW OF SYSTEMS: Constitutional: (+) cold sweats this morning resolved, No fever, sweats or chills Eyes: No diplopia, no worsening or blurred vision ENT: normal hearing, no trouble swallowing Respiratory: No cough, sputum, dyspnea at rest or on exertion Cardiovascular: No chest pain, tightness or palpitations Abdomen: (+) diarrhea, No pain, nausea, vomiting, or constipation Musculoskeletal: No joint pain, calf pain, swelling Neurologic: No weakness, numbness/tingling, or balance problems Psychiatric: No anxiety or depression Skin: No rash or itch Physical Exam Physical Exam: PHYSICAL EXAM: General: awake, alert, no apparent distress Head: Normocephalic, atraumatic ENT: PERRL, EOMI, no pharyngeal exudate, mucous membranes moist Neuro: AAO x 3, speech clear and appropriate, strength intact bilaterally 5/5, sensation intact and equal all extremities and dermatomes, no pronator drift Chest: equal rise and fall of the chest, no accessory muscle use, no heaves or thrills, Clear to auscultation, on room air, Cardiac: Regular rate and rhythm, telemetry reviewed, skin warm dry, cap refill <3 seconds, peripheral pulses +2 no JVD, no murmur, no JVD, no edema GI: NABS x 4 quadrants, soft, tympanic on percussion, nontender to palpation, no rebound, guarding or tenderness, no further loose stools : Spontaneously voiding, no pain, no CVA tenderness, Extremities: Normal inspection, no peripheral edema or erythema, calfs nontender to palpation Psych: Normal mood and affect Skin: no rash or erythema Results & Data Results & Data ([facility]) Vital Signs (Past 12 Hours) Vital Signs Temp Pulse Pulse Resp BP BP Pulse Ox 05/29/21 12:33 81 18 172/92 H 98 05/29/21 11:09 96 05/29/21 10:44 36.6 C 20 130/92 96 05/29/21 10:38 36.6 C 68 20 130/92 96 Laboratory Results Abnormal lab results 05/29/21 05/29/21 Range/Units 11:00 11:00 RDW Std Deviation 52.2 H (36.4-46.3) fL RDW Coeff of Paresh 15.3 H (11.5-14.5) % Neut # (Auto) 8.21 H (1.4-6.5) K/uL [place] # (Auto) 0.88 H (0.11-0.59) K/uL Immature Gran # (Auto) 0.03 H (0.00-0.02) K/uL BUN 21 H (7-18) mg/dl Creatinine 1.61 H (0.6-1.4) mg/dl Glucose 149 H (70-99) mg/dl Diagnostic Findings Chest X-Ray 05/29/21 10:30 XR chest 1V portable CLINICAL HISTORY: Syncope. COMPARISON STUDY: Chest radiograph February 28, 2020. FINDINGS: Lung volumes are normal. Lungs are clear. There is no pneumothorax or pleural effusion. Cardiac size is normal. Mediastinal contours are normal. There is no evidence for pulmonary edema. IMPRESSION: No acute cardiopulmonary findings. ACT 112: Negative or not required by law. Electronically signed by: Keith Hassan M.D. 05/29/2021 11:[address] 05/29/21 10:30 CT OF THE HEAD WITHOUT CONTRAST CLINICAL HISTORY: weakness COMPARISON STUDY: Head CT April 22, 2018. CT DOSE: 614.27 mGy.cm TECHNIQUE: Helical axial images of the head were obtained without IV contrast. Automated exposure control was utilized for the study. A dose lowering technique was utilized adhering to the principles of ALARA. FINDINGS: No acute intracranial hemorrhage, midline shift or mass effect is present. The ventricular system is unremarkable. A 9 mm hypodensity within the left centrum semiovale ovale on axial image 17 of 32 is new since head CT of April 22, 2018. The basal cisterns are patent. No extra-axial collections are present. There are no findings to suggest acute dural sinus thrombosis or acute territorial infarct. No significant calvarial abnormalities are present. Visualized portions of the sinuses and mastoid air cells are clear. IMPRESSION: 1. No acute intracranial hemorrhage or mass effect. 2. 9 mm hypodensity within the left centrum semiovale ovale which is new since head CT of April 22, 2018. This could reflect an age indeterminate infarct or small vessel disease. ACT 112: Negative or not required by law. Electronically signed by: Keith Hassan M.D. 05/29/2021 11:47 AM Medications Administered Discontinued Medications Sodium Chloride (Nss 1000ml) 500 mls @ 999 mls/hr IV .Q31M ONE Stop: 05/29/21 10:59 Last Infusion: 05/29/21 11:50 Dose: 0 mls/hr Documented by: [id number] Admin: 05/29/21 11:17 Dose: 999 mls/hr Documented by: [id number] Home Medications coenzyme Q10 100 mg capsule (Co Q-10) 100 mg PO QAM 08/10/19 [History Confirmed 05/29/21] amlodipine 10 mg-benazepril 20 mg capsule (Lotrel) 1 cap PO HS 02/24/20 [History Confirmed 05/29/21] atorvastatin 20 mg tablet (Lipitor) 20 mg PO HS 02/24/20 [History Confirmed 05/29/21] ferrous sulfate 325 mg (65 mg iron) tablet (iron) 325 mg PO QAM 02/24/20 [History Confirmed 05/29/21] dqogqposxiqs-wnvtlyqm-cpdmnd tablet (Multivitamin 50 Plus) 1 tab PO QAM 02/24/20 [History Confirmed 05/29/21] potassium chloride 10 mEq tablet,extended release (K-Tab) 10 meq PO QAM 02/24/20 [History Confirmed 05/29/21] diphenhydramine HCl 50 mg capsule 50 mg PO HS PRN 02/28/20 [History Confirmed 05/29/21] docusate sodium 100 mg capsule 100 mg PO QPM PRN 05/29/21 [History Confirmed 05/29/21] Active Medications Lactated Ringer's (Lr) 500 mls @ 999 mls/hr IV .Q31M ONE Stop: 05/29/21 13:20 Code Status & VTE Plan Code Status CODE: FULL VTE: SCDs, Heparin 5000 untis subq q12 Supervising Physician Co-Signing Physician Notes Attending addendum: I have physically seen this patient, have supervised the CRISTINA's activities, and agree with the H&P unless as otherwise noted. Assessment and Plan: Diarrhea- KUB suggest mild ileus versus low-grade partial small bowel obstruction clear bland diet written for evening if not tolerated, will change to n.p.o. Famotidine 20 mg IV every 12 hours IV fluids, LR at 80 mils per hour x1 L Acute kidney injury- Secondary to hypovolemia caused by diarrhea IV fluids as noted Recheck laboratories in a.m. Hold amlodipine benazepril Remaining orders and notations as noted PG Care Time/CCT Total # of Minutes Spent Total Time Spent with Patient: Total time spent is greater than 50% in coordination of care (as documented) at patient's floor/unit and/or counseling patient: Coding Level of Care Code INT OBSERVATION CARE 70M LVL 3 Diagnoses Diarrhea R19.7 Hypovolemia E86.1 DIVINA (acute kidney injury) N17.9 BPH with obstruction/lower urinary tract symptoms N40.1; N13.8 Hypertension I10 HLD (hyperlipidemia) E78.5 CVA (cerebral vascular accident) I63.9 Blood glucose elevated R73.9
--- NOTE | 2021-05-29 14:00 | XRay Report ---
KUB HISTORY: Generalized abdominal pain. evaluate for obstruction or free air COMPARISON: MRCP 11/27/2020. FINDINGS: There are few borderline dilated gas-filled loops of small bowel within the abdomen measuri ng up to 3.2 cm in diameter. Calcification overlying the right L1 transverse process. This could be v ascular or represent a renal calcification. No ureteral calculi. No pneumoperitoneum or pneumatosis. IMPRESSION: Borderline dilated gas-filled loops of small bowel within the abdomen. This could represent a mild il eus or low-grade partial small bowel obstruction. ACT 112: Negative or not required by law. Electronically signed by: Moe Haji M.D. 05/29/2021 1:59 PM
[2021-05-29] MEDS ORDERED: LACTATED RINGER'S 1,000 ML IV ONE (15:50)
[2021-05-29] MEDS ORDERED: MAGNESIUM HYDROXIDE SUSP 30 ML UDC PO ONE (16:42)
[2021-05-29] MEDS ORDERED: ONDANSETRON INJ 2 MG/ML 2 ML VIAL IV PRN (16:42)
[2021-05-29] MEDS ORDERED: ACETAMINOPHEN 325 MG TAB PO PRN (16:42)
[2021-05-29] MEDS ORDERED: DOCUSATE SODIUM 100 MG CAP PO PRN (16:42)
[2021-05-29] MEDS ORDERED: diphenhydrAMINE Capsule 25 MG CAP PO PRN (16:46)
[2021-05-29] MEDS: ASPIRIN 81 MG ECTAB PO SCH (18:39)
[2021-05-29] MEDS: DOCUSATE SODIUM/SENNA 50/8.6MG TAB PO SCH (18:44)
--- NOTE | 2021-05-29 20:09 | Magnetic Resonance Report ---
MR brain wo con HISTORY: 85 years-old Male CVA indeterminate- history of bladder tumor acute strokelike symptoms COMPARISON: Head CT of same day TECHNIQUE: Multi planar multisequence MRI of the brain was obtained without the use of IV contrast. FINDINGS: No restricted diffusion to suggest acute or subacute infarct. No acute intracranial hemorrhage, midli ne shift, abnormal extra-axial collection, hydrocephalus or intracranial mass. No pathologic blooming artifact. Age-related involutional changes. Mild to moderate scattered T2/FLAIR hyperintensities are noted throughout the white matter. Cerebral venous sinuses and major arterial flow voids appear patent. Mastoid air cells are clear. Mil d mucosal thickening of the paranasal sinuses. The skull and soft tissues are unremarkable. Prior carmela ateral lens repair. IMPRESSION: 1. No acute intracranial abnormality. No acute or subacute infarct. 2. Age-related involutional changes with chronic microvascular ischemic disease. ACT 112: Negative or not required by law. The above report was generated using voice recognition software. It may contain grammatical, syntax o r spelling errors. Electronically signed by: Wilfred Yu M.D. 05/29/2021 8:08 PM
[2021-05-29] MEDS ORDERED: GADOBUTROL 65ML VIAL IV ONE (20:45)
[2021-05-29] MEDS ORDERED: ATORVASTATIN 20 MG TAB PO SCH (21:00)
[2021-05-29] MEDS: HEPARIN SOD 5,000 UNIT/0.5 ML VIAL SQ SCH (21:00)
--- NOTE | 2021-05-29 21:16 | Magnetic Resonance Report ---
MR angio neck wo/w con HISTORY: 85 years-old Male indeterminant age stroke acute strokelike symptoms COMPARISON: Brain MRI of same day TECHNIQUE: MRA of the neck was obtained both with and without the use of 7.5 mL Gadavist utilizing 3- D [id number] sequencing with MIP reformats. All measurements were obtained according to NASCET cr iteria. FINDINGS: Riddler Operator localizer images demonstrate no gross abnormality. Multinodular thyroid. Mild luminal narrowing of the left carotid bulb likely secondary to atherosclerotic disease. The common and internal caroti d arteries appear patent. Dominant left vertebral artery. The right vertebral artery is diminutive wi th the distal portion not well visualized. IMPRESSION: Unremarkable MRA of the neck. ACT 112: Negative or not required by law. The above report was generated using voice recognition software. It may contain grammatical, syntax o r spelling errors. Electronically signed by: Wilfred Yu M.D. 05/29/2021 9:14 PM
[2021-05-30 06:35] LABS: Basophils # (auto) 0.02 K/uL (0-0.2); Basophils % (auto) 0.3 %; Eosinophils # (auto) 0.12 K/uL (0-0.5); Eosinophils % (auto) 1.6 %; Hematocrit (blood only) 40.4 % (42-52); Hemoglobin 13.4 g/dL (14.0-18.0); Immature Granulocytes # (auto) 0.02 K/uL (0.00-0.02); Immature Granulocytes % (auto) 0.3 %; Lymphocytes # (auto) 1.83 K/uL (1.2-3.4); Mean Corpuscular Hemoglobin 30.7 pg (25-34); Mean Corpuscular Hgb Conc 33.2 g/dL (32-36); Mean Corpuscular Volume 92.7 fL (80-100); Mean Platelet Volume 10.4 fL (7.4-10.4); Monocytes % (auto) 10.5 %; Neutrophils # (auto) 4.82 K/uL (1.4-6.5); Neutrophils % (auto) 63.3 %; Platelet Count 201 K/uL (130-400); RDW Coefficient of Variation 15.4 % (11.5-14.5); RDW Standard Deviation 52.3 fL (36.4-46.3); Red Blood Count 4.36 M/uL (4.7-6.1); White Blood Count 7.61 K/uL (4.8-10.8)
[2021-05-30 07:20] LABS: Calcium 8.4 mg/dl (8.5-10.1); Creatinine Clr Calc Pharmacy 48.2 ml/min; Est GFR (Non-African American) 66.4 ml/min; Magnesium 2.1 mg/dl (1.8-2.4); Potassium 3.4 mmol/L (3.5-5.1)
[2021-05-30 07:28] LABS: Estimated Average Glucose 117 mg/dl; Hemoglobin A1C 5.7 % (4.5-5.6)
--- NOTE | 2021-05-30 08:01 | XRay Report ---
KUB HISTORY: Abnormal KUB. Follow-up. evaluate dilated loops of bowel COMPARISON: KUB 05/29/2021. FINDINGS: Dilated gas-filled loops of small bowel have improved in the interval. Nondilated gas-fille d colon is noted. No renal calculi. No ureteral calculi. No pneumoperitoneum or pneumatosis. IMPRESSION: Interval resolution of the dilated gas-filled loops of small bowel. ACT 112: Negative or not required by law. Electronically signed by: Moe Haji M.D. 05/30/2021 8:00 AM
[2021-05-30] MEDS ORDERED: POTASSIUM CHLORIDE 10 MEQ TABCR PO SCH (09:00)
[2021-05-30] MEDS ORDERED: FERROUS SULFATE 325 MG TAB PO SCH (09:00)
[2021-05-30] MEDS ORDERED: CEROVITE ADV FORMULA TAB PO SCH (09:00)
[2021-05-30] MEDS: ASPIRIN 81 MG ECTAB PO SCH (09:26)
[2021-05-30] MEDS: HEPARIN SOD 5,000 UNIT/0.5 ML VIAL SQ SCH (09:27)
[2021-05-30] MEDS: DOCUSATE SODIUM/SENNA 50/8.6MG TAB PO SCH (10:17)
[2021-05-30] MEDS ORDERED: amLODIPine BESYLATE 5 MG TAB PO ONE (12:15)
--- NOTE | 2021-05-30 16:32 | Discharge Summary ---
Date of Service May 30, 2021 Admission HPI Per Admitting Provider 85 YOM with past medical history of: HTN, HLD, iron deficiency anemia, BPH with LUTS, prostate nodule (declined biopsy), bladder tumor removed in 2005, nose bleeds cholelethiasis, pancreatic lesions. Patient comes to the emergency room today for loose stools x3 and feeling weak and light headed. The patient went out this morning for a routine follow up at the [facility] to get blood drawn. When he got home he went to the bathroom and reports he had a large normal bowel movement, upon getting up from that, the patient felt dizzy lightheaded, and started to get cold sweats. He laid himself on the floor. This was then followed by 3 large watery bowel movements that were brown in nature. He did not eat since yesterday. He has not had any fevers or chills other than with the cool sweats this morning. Denies any abdominal pain or discomfort, and denied any blood or mucous in the stools. He was out this week helping a neighbor move and has felt otherwise very well. In the EMD he was given 500 ml of crystalloid and had routine labs drawn, ECG, CXR and CT scan of the head performed. Hospitalist service was consulted for admission for syncope. The patient did not have any loss of consciousness. His HR 70-80 in bed, upon standing HR increased to 97. He did not have any dizziness at that time, and has not had any further loose stools. Patient will be observed overnight for any further loose stools continue to replace fluid loss in stools until Euvolemia. Follow exam and imaging for any abdominal pathology. His CT scan of his head did incidentally find a 9mm hypodensity of the left centrum semiovale which was new since 2018, further evaluate with MRI/MRA. Patient has had his COVID Vaccines and his COVID test on admission is: NEGATIVE Admission Exam Per Admitting Provider General: awake, alert, no apparent distress Head: Normocephalic, atraumatic ENT: PERRL, EOMI, no pharyngeal exudate, mucous membranes moist Neuro: AAO x 3, speech clear and appropriate, strength intact bilaterally 5/5, sensation intact and equal all extremities and dermatomes, no pronator drift Chest: equal rise and fall of the chest, no accessory muscle use, no heaves or thrills, Clear to auscultation, on room air, Cardiac: Regular rate and rhythm, telemetry reviewed, skin warm dry, cap refill <3 seconds, peripheral pulses +2 no JVD, no murmur, no JVD, no edema GI: NABS x 4 quadrants, soft, tympanic on percussion, nontender to palpation, no rebound, guarding or tenderness, no further loose stools : Spontaneously voiding, no pain, no CVA tenderness, Extremities: Normal inspection, no peripheral edema or erythema, calfs nontender to palpation Psych: Normal mood and affect Skin: no rash or erythema Principal Diagnosis Vasovagal Syncope Discharge Exam General: awake, alert, no apparent distress Head: Normocephalic, atraumatic ENT: PERRL, EOMI, no pharyngeal exudate, mucous membranes moist Neuro: AAO x 3, speech clear and appropriate, strength intact bilaterally 5/5, sensation intact and equal all extremities and dermatomes Chest: equal rise and fall of the chest, no accessory muscle use, no heaves or thrills, Clear to auscultation, on room air, Cardiac: Regular rate and rhythm, skin warm dry, cap refill <3 seconds, peripheral pulses +2 no JVD, no murmur, no JVD, no edema GI: NABS x 4 quadrants, soft, tympanic on percussion, nontender to palpation, no rebound, guarding or tenderness, no further loose stools : no CVA tenderness Extremities: Normal inspection, no peripheral edema or erythema, calfs nontender to palpation Psych: Normal mood and affect Skin: no rash or erythema Discharge Data Allergies Allergy/AdvReac Type Severity Reaction Status Date / Time No Known Drug Allergies Allergy Verified 05/29/21 12:35 Consultations 05/29/21 14:52 ED Decision to Admit Stat Ordered Studies 05/29/21 10:30 CT head/brain wo con Stat 05/29/21 13:39 MR angio neck wo/w con Urgent 05/29/21 13:40 MR brain wo con Urgent Hospital Course (1) Near syncope: (2) Diarrhea: (1) Diarrhea: Acute abrupt onset this morning- without abdominal pain or tenderness. Normal BM earlier - WBC-10.5, Normal LFTs and bilirubin, TSH normal, associated with cold sweats and dizziness - KUB: dilated loops, suspect mild ileus or low-grade partial small bowel obstruction- MOM and senna - Repeat KUB showed interval resolution of dilation - UA negative, no stool culture collected - Clear liquids advanced to regular diet without complaints, remains with no abdominal pain or fever. (2) Hypovolemia: Secondary to number #1 - no longer increases in HR with position changes - In ED: LR bolus 500 ml x1- will total 1 liter of crystalloid (LR at 80 ml/hr x 1 liter) - Cr improved from 1.6 --> 1.03 (3) DIVINA (acute kidney injury), resolved: Secondary to #1 and #2 - last BMP we have for comparison is from 2019- 0.9-1.1 - Continue to achieve euvolemia, KAVYA held - UA negative for protein or blood - Cr improved from 1.6 --> 1.03 (7) CVA (cerebral vascular accident), Syncopal event: - CT of head- 9 mm hypodensity within the left centrum semiovale ovale which is new since head CT of April 22, 2018. This could reflect an age indeterminate infarct or small vessel disease. 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 Muniz (10) HLD (hyperlipidemia): - Continue atorvastatin 20 mg PO Qhs (11) Blood glucose elevated: Elevated blood glucose level without diagnosis of DM - A1c 5.7 Total Time Total Time Spent Total Time Spent (In Minutes): 20 Discharge Plan Discharge Items Patient Disposition: Home - Self-Care Reason For Visit: WEAKNESS, DIARRHEA, DIVINA Discharge Diagnosis: Vasovagal Syncope Activity: Per Instructions section Non-emergency contact: Primary Care Provider Call non-emergency contact if: you have any medication questions, your symptoms worsen and you have a fever Follow-up/Referrals: Liz Muniz DO [Primary Care Provider] - 06/06/21 2:30 pm ([facility] at [facility]) Diet: Carb Consistent or DM2 Addtl Attending Provider Instructions: Mr. Aguilar, you presented to the hospital after experiencing 3 diarrheal epis odes which occurred after not feeling too well causing you to lay on the floor. In the ER we hydrated your body with fluids and did some imaging which included an x-ray of the abdomen showing mild dilated loops in your bowel full of gas. The reason you were admitted was because we wanted to rule out causes for a near syncopal event. We we did a CT scan of your head which found an incidental fin ding of a hypodensity in your left hemisphere which was new since your last scan in 2018. This prompted us getting an MRI of your brain which showed no acute abnormalities or infarctions. Only age-related chronic microvascular disease was found which is not surprising for your age. Since admission you have clinically been improving as you are no pain, you are hemodynamically stable, and you are able to ambulate and eat a regular diet without complaints. On admission your creatinine level was elevated at 1.6 which could simply show dehydration. The fluids we gave you helped resolve this is your creatinine is now within the normal range. You may follow-up with your primary care provider for further instruction. However at this time, no restrictions as tolerated. Pending Studies at Discharge: No Stand-Alone Forms: My [facility] Medications and DC Order Prescriptions: Continued coenzyme Q10 [Co Q-10] 100 mg capsule 100 mg PO QAM RF: 0 atorvastatin [Lipitor] 20 mg Tablet 20 mg PO HS RF: 0 potassium chloride [K-Tab] 10 mEq tablet extended release 10 meq PO QAM RF: 0 ferrous sulfate [iron] 325 mg (65 mg iron) Tablet 325 mg PO QAM RF: 0 Multivitamin 50 Plus Tablet 1 tab PO QAM RF: 0 amlodipine-benazepril [Lotrel] 10-20 mg capsule 1 cap PO HS RF: 0 diphenhydramine HCl 50 mg Capsule 50 mg PO HS PRN (Reason: Sleep) RF: 0 docusate sodium 100 mg Capsule 100 mg PO QPM PRN (Reason: Constipation) RF: 0 Discharge Orders: Discharge Order (Routine); Ordered 05/30/21 Ordered By: Leon Sanchez/Other Patient Handouts: Self-Care for Vomiting and Diarrhea, Eating Heart-Healthy Foods Admission Data Admit Date/Time: 05/29/21 13:10 Attending Provider: Isac Brewer Admit Provider: Alexy Allen Primary Care Provider: Liz Muniz Other Providers: Alexy Allen Other Interventions: Discharge Summary Assessment (RN) Last Done: 05/30/21 16:22 Supervising Physician Co-Signing Physician Notes I also saw the patient with the resident physician and confirmed pike portions of the history and physical examination. Agree with impression plan as noted in the resident documentation. Upon examination this morning, the patient was feeling well. He had no complaints. He had tolerated a liquid diet without nausea or vomiting nor abdominal pain. We advance his diet to a full diet; he tolerated this well also for lunch without any abdominal pain, nausea, or vomiting. He was also ambulatory in the hallway and denied lightheadedness or dizziness. Exam 165/71, 67, 18, 36.9, 96% on room air Alert and oriented. No distress. Heart regular Lungs clear with nonlabored respirations Abdomen soft and nontender. Bowel sounds are noted. No rebound or guarding. Data Hemoglobin 13.4, platelet count 201 Sodium 143, potassium 3.4, BUN 15, creatinine 1.03. Repeat KUB this morning shows interval resolution of the dilated gas-filled loops of small bowel seen upon admission. Impression and plan Vasovagal, near syncopal, secondary to bowel movement Dehydration with DIVINA, secondary to gastrointestinal loss, resolved Upon our exam, he is without complaint. Hemodynamically stable. He is annabelle ating p.o. without nausea, vomiting, or abdominal pain. Okay for discharge home today. Discussed signs and symptoms for which to monitor. PCP follow-up in 1 week. Additional per resident documentation Resident Activity Tracking Resident Involvement: Resident Care Provided Care Provided: Adult [facility]
--- NOTE | 2021-05-30 17:28 | Electrocardiogram Report ---
Test Reason : Blood Pressure : / mmHG Vent. Rate : 086 BPM Atrial Rate : 086 BPM P-R Int : 186 ms QRS Dur : 076 ms QT Int : 368 ms P-R-T Axes : -25 -21 -57 degrees QTc Int : 440 ms Poor data quality, interpretation may be adversely affected Normal sinus rhythm possible Inferior infarct (cited on or before 29-AUG-2005) Anteroseptal infarct (cited on or before 29-AUG-2005) Abnormal ECG When compared with ECG of 24-FEB-2020 19:08, Nonspecific T wave abnormality now evident in Anterolateral leads Confirmed by Sky Bruce ([id number]) on 05/30/2021 5:27:59 PM Referred By: REFERRED SELF Confirmed By:Jaylen Bruce
== END 2021-05-30 17:39 | disposition home or self-care (01) ==
LOC: ED 10:18 → 3N 10:18 → SUATTDRO 13:10 → 3N 16:08

== ENCOUNTER 2024-08-18 10:17 | Observation (INO) ==
--- NOTE | 2024-08-18 11:01 | Emergency Department Note ---
Impression & Plan Dizziness, Unsteady gait, Elevated blood sugar ED Provider Note NAME: GIBSON MALONE AGE: 89 SEX: M : 1935 ARRIVES VIA: Ambulance INFORMANT: Patient ED PROVIDER(S): Anibal Linder DO CHIEF COMPLAINT: Dizzy HPI: Patient is an 89-year-old male with a past medical history of BPH, DIVINA, hypertension who presents to the ER for dizziness. Dizziness started 2 days ago at night. When he gets up and moves around he feels like everything is moving. He has to hold on when he is walking. He denies any focal weakness or numbness in the arms or legs. No headache or change in vision. No chest pain or shortness of breath. No nausea, vomiting, or diarrhea. If he is laying or sitting he does not have any symptoms. It is only when he stands up. Once he gets up nothing makes this better or worse. He has never had this before. ADDITIONAL HISTORY OBTAINED: Per HPI Chronic Medical/Social Conditions Affecting Care: Per HPI PAST MEDICAL HISTORY:See Below PAST SURGICAL HISTORY:See Below FAMILY HISTORY:See Below SOCIAL HISTORY:See Below HOME MEDICATIONS:See Below ALLERGIES:See Below VITALS:See Below PHYSICAL EXAMINATION: GENERAL: Sitting up in bed, alert, well appearing, well nourished, no distress, non-toxic EYE EXAM: normal conjunctiva. PERRL and EOM's grossly intact. OROPHARYNX: no exudate, no erythema, lips, buccal mucosa, and tongue normal and mucous membranes are moist NECK: supple, no nuchal rigidity, no adenopathy, non-tender LUNGS: Clear to auscultation. Normal chest wall mechanics HEART: no murmurs, S1 normal and S2 normal ABDOMEN: abdomen soft, non-tender, normo-active bowel sounds, no masses, no rebound or guarding. BACK: Back is symmetrical on inspection and there is no deformity, no midline tenderness, no CVA tenderness. SKIN: no rashes and no bruising UPPER EXTREMITIES: upper extremities are grossly normal. LOWER EXTREMITIES: No pitting edema. NEURO EXAM: Normal sensorium, cranial nerves II-XII intact, normal speech, no weakness of arms, no weakness of legs. No drift. Finger to nose intact. Gross sensation intact. MEDICAL DECISION MAKING: Patient is an 89-year-old male who presents ER for the above-stated complaint. IV was established and blood work was obtained. Labs show no significant leukocytosis or anemia. BMP along with LFTs bilirubin was unremarkable. Troponin was negative. CT angios of the head and neck were unremarkable. Discussed with [facility] telestroke neurology Dr. Mao. He evaluate the patient and recommends admission, aspirin and further evaluation for stroke workup. Discussed with Dr. Haley for admission and complete workup. Consults/Care Managements Discussions: Per [facility] Triage Nursing notes reviewed. Limited review of prior medical records performed Vital Signs: reviewed and remarkable for no significant abnormalities Differential diagnosis: Differential diagnosis includes etiologies such as benign positional vertigo, dehydration, hypovolemia, anemia, tumor, infection, hypoglycemia, electrolyte abnormalities, cardiac sources, intracerebral event, toxicologic, neurological, as well as others were entertained. ER treatment provided: See below Diagnostics interpreted by me include EKG and cardiac monitoring as listed below: -Cardiac Monitoring: An order was placed for continuous cardiac monitoring. The monitor shows a rate of 70 with sinus rhythm. -ECG: Sinus rhythm rate of 65 Normal axis Inferior Q waves QTc 422 -Laboratory studies:Interpreted by me as stated above in MDM and shown below. Imaging studies: Xrays: As interpreted by me:none CTs show: CT angios of the head and neck showed no acute pathology Procedures:none Critical Care: None Past Med/Surg History Problem List (Updated 08/18/24 @ 14:15 by Anibal Linder DO) Elevated blood sugar (Acute) Unsteady gait (Acute) Dizziness (Acute) BPH with obstruction/lower urinary tract symptoms High cholesterol Near syncope (Acute) DIVINA (acute kidney injury) (Acute) Elevated prostate specific antigen (PSA) Abnormality detected on rectal examination of prostate Epistaxis, recurrent Hypertension (Chronic) Facial swelling (Acute) Medical History (Updated 08/18/24 @ 14:15 by Anibal Linder DO) Cholelithiasis Abdominal pain, epigastric Lab test negative for COVID-19 virus Dehydration Weakness Blood glucose elevated CVA (cerebral vascular accident) HLD (hyperlipidemia) Hypovolemia Diarrhea BPH with obstruction/lower urinary tract symptoms No pertinent past medical history Surgical History History of bladder surgery removal of tumor-2007 Family History Father Stroke Hypertension Other No family history of bleeding disorder Social History Smoking Status: Unknown if ever smoked Second Hand Exposure: No; Do You Dip or Chew Tobacco: No; Hx Alcohol Use: Yes Alcohol type: beer and hard liquor Hx Substance Use: No Preferred Language: Italian Communication Ability: Effective [employer] Offbearer Required: No Beliefs That Will Affect Care: None marital status: Current Living Situation: Spouse Current Living Situation Comment: Lives with current occupational status: employed current occupation: [employer] Feels Safe at Home: Yes Assistive Devices: None Allergies Allergies Allergy/AdvReac Type Severity Reaction Status Date / Time No Known Drug Allergies Allergy Verified 02/10/23 10:13 Home Meds Home Medications Medication Instructions Recorded Confirmed coenzyme Q10 100 mg capsule (Co 100 mg PO QAM 08/10/19 02/10/23 Q-10) amlodipine 10 mg-benazepril 20 mg 1 cap PO HS 02/24/20 02/10/23 capsule (Lotrel) atorvastatin 20 mg tablet (Lipitor) 20 mg PO HS 02/24/20 02/10/23 ferrous sulfate 325 mg (65 mg 325 mg PO QAM 02/24/20 02/10/23 iron) tablet (iron) [id number] 1 tab PO QAM 02/24/20 02/10/23 tablet (Multivitamin 50 Plus tablet) potassium chloride 10 mEq 10 meq PO QAM 02/24/20 02/10/23 tablet,extended release (K-Tab) diphenhydramine HCl 50 mg capsule 50 mg PO HS PRN Sleep 02/28/20 02/10/23 docusate sodium 100 mg capsule 100 mg PO QPM PRN Constipation 05/29/21 02/10/23 Previous Rx's Medication Instructions Recorded dutasteride 0.5 mg capsule 0.5 mg PO DAILY #90 caps 02/16/24 (Avodart) Results & Data (ED) Vital Signs Vital Signs - 24 hr 08/18/24 10:12 08/18/24 10:29 08/18/24 10:33 Temperature 37 C Temperature Source Oral Pulse Rate - Lying Pulse Rate - Sitting Pulse Rate - Standing Pulse Rate 65 63 64 Pulse Rate from SpO2 Sensor 64 Respiratory Rate 20 15 Blood Pressure - Lying Blood Pressure - Sitting Blood Pressure- Standing Blood Pressure 168/84 H 152/73 H Blood Pressure Mean 112 99 Pulse Oximetry 96 94 Oxygen Delivery Method Room Air Sepsis Recent Fever Within 48 Hours No Sepsis New/Unexplained Change in Mental Status No Sepsis Action Taken by Nursing No Action Required 08/18/24 10:36 08/18/24 10:40 08/18/24 10:48 Temperature Temperature Source Pulse Rate - Lying 64 Pulse Rate - Sitting 65 Pulse Rate - Standing 73 Pulse Rate 65 Pulse Rate from SpO2 Sensor 65 Respiratory Rate 23 Blood Pressure - Lying 158/81 H Blood Pressure - Sitting 142/74 H Blood Pressure- Standing 137/68 Blood Pressure 142/74 H Blood Pressure Mean 96 Pulse Oximetry 94 Oxygen Delivery Method Room Air Sepsis Recent Fever Within 48 Hours Sepsis New/Unexplained Change in Mental Status Sepsis Action Taken by Nursing 08/18/24 10:57 08/18/24 11:00 08/18/24 11:00 Temperature Temperature Source Pulse Rate - Lying Pulse Rate - Sitting Pulse Rate - Standing Pulse Rate 68 Pulse Rate from SpO2 Sensor 68 Respiratory Rate 14 Blood Pressure - Lying Blood Pressure - Sitting Blood Pressure- Standing Blood Pressure 137/68 146/70 H 146/70 H Blood Pressure Mean 91 107 107 Pulse Oximetry 96 Oxygen Delivery Method Sepsis Recent Fever Within 48 Hours Sepsis New/Unexplained Change in Mental Status Sepsis Action Taken by Nursing 08/18/24 11:30 08/18/24 12:00 08/18/24 12:00 Temperature Temperature Source Pulse Rate - Lying Pulse Rate - Sitting Pulse Rate - Standing Pulse Rate Pulse Rate from SpO2 Sensor Respiratory Rate Blood Pressure - Lying Blood Pressure - Sitting Blood Pressure- Standing Blood Pressure 132/71 151/72 H 151/72 H Blood Pressure Mean 110 110 110 Pulse Oximetry Oxygen Delivery Method Sepsis Recent Fever Within 48 Hours Sepsis New/Unexplained Change in Mental Status Sepsis Action Taken by Nursing 08/18/24 12:00 08/18/24 12:00 Temperature Temperature Source Pulse Rate - Lying Pulse Rate - Sitting Pulse Rate - Standing Pulse Rate 59 L Pulse Rate from SpO2 Sensor 59 L Respiratory Rate 13 Blood Pressure - Lying Blood Pressure - Sitting Blood Pressure- Standing Blood Pressure 151/72 H Blood Pressure Mean 110 Pulse Oximetry 95 Oxygen Delivery Method Sepsis Recent Fever Within 48 Hours Sepsis New/Unexplained Change in Mental Status Sepsis Action Taken by Nursing Laboratory Data 08/18/24 10:27 08/18/24 10:27 Lab Results 08/18/24 Range/Units 10:27 WBC 7.31 (4.8-10.8) K/ul RBC 4.96 (4.70-6.10) M/uL Hgb 15.3 (14.0-18.0) g/dl Hct 45.7 (42.0-52.0) % MCV 92.1 (80.0-100.0) fL MCH 30.8 (25.0-34.0) pg MCHC 33.5 (32.0-36.0) g/dL RDW Std Deviation 49.7 H (36.4-46.3) fL RDW Coeff of Paresh 14.8 H (11.5-14.5) % Plt Count 221 (130-400) K/uL MPV 10.2 (9.4-12.4) fL Immature Gran % (Auto) 0.4 % Neut % (Auto) 63.9 % Lymph % (Auto) 23.0 % Butts % (Auto) 9.3 % Eos % (Auto) 2.9 % Baso % (Auto) 0.5 % Neut # (Auto) 4.67 (1.40-6.50) K/uL Lymph # (Auto) 1.68 (1.20-3.40) K/uL Butts # (Auto) 0.68 H (0.11-0.59) K/uL Eos # (Auto) 0.21 (0.00-0.50) K/uL Baso # (Auto) 0.04 (0.00-0.20) K/uL Immature Gran # (Auto) 0.03 (0.01-0.20) K/uL Sodium 140 (136-145) mmol/L Potassium 3.5 (3.5-5.1) mmol/L Chloride 104 (98-107) mmol/L Carbon Dioxide 29 (21-32) mmol/L Anion Gap 7 (3-11) BUN 12 (6-23) mg/dl Creatinine 0.99 (0.6-1.4) mg/dl Est Cr Clr Drug Dosing 50.9 ml/min eGFR 73.27 BUN/Creatinine Ratio 12.1 (10-20) Glucose 132 H (70-99(Fasting)) mg/dl Calcium 9.5 (8.6-10.3) mg/dl Total Bilirubin 0.8 (0.2-1.0) mg/dl AST 22 (13-39) U/L ALT 24 (7-52) U/L Alkaline Phosphatase 68 (34-104) U/L Troponin I High Sens 7.6 (0-20) pg/ml Total Protein 7.4 (6.0-8.3) gm/dl Albumin 4.4 (3.4-5.0) gm/dl Globulin 3.0 (2.5-4.0) gm/dl Albumin/Globulin Ratio 1.5 (0.9-2) Administered Medications Discontinued Medications Aspirin (Aspirin Chew 324 Mg) 81 mg PO NOW STA Stop: 08/18/24 13:16 Last Admin: 08/18/24 13:25 Dose: 81 mg Documented By: YOVANY Ioversol (Optiray 320 125ml) 120 ml IV ONCE ONE Stop: 08/18/24 11:40 Last Admin: 08/18/24 11:33 Dose: 120 ml Documented By: MISSY Imaging Data Radiologist's Impression: Head CTA 08/18/24 11:22 CT angio head wo/w CLINICAL HISTORY: dizzy TECHNIQUE: Contiguous axial CT images of the head were acquired from the base of the skull to the vertex without intravenous contrast administration. CT angiography of the head was performed following intravenous administration of iodinated contrast. Coronal and sagittal MIPS were obtained from the axial data set and were submitted for review. Automated dose lowering techniques and/or adjustment according to patient size were utilized for this examination. All measurements were calculated based on NASCET criteria. Comparison: Comparison is made to CT head 05/29/2021 FINDINGS: CT head: There is no acute intracranial hemorrhage or evidence of acute territorial infarction. No shift of the midline structures, mass effect, or extra-axial abnormalities are shown. CTA Head: The anterior and posterior cerebral circulations are patent. No hemodynamically significant stenosis, aneurysm, dissection, or arteriovenous malformation is shown. 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 Right vertebral artery terminates in PICA. IMPRESSION: 1. No acute intracranial hemorrhage, evidence of acute territorial infarction, or other acute intracranial disease process. 2. No occlusion, hemodynamically significant stenosis, aneurysm, dissection, or arteriovenous malformation in the major intracranial arteries. Assessment of stenosis of the internal carotid arteries is based on NASCET criteria. ACT 112: Negative or not required by law. Electronically signed by: Shashank Campbell M.D. 08/18/2024 11:59 AM Neck CTA 08/18/24 11:22 CT angio neck with con CLINICAL HISTORY: 89 years-old Male with dizzy. Acute dizziness COMPARISON STUDY: CTA head of same day, MRA neck 05/29/2021 TECHNIQUE: Following the IV administration of 1 20 mL of Optiray, CT angiogram of the neck was performed from the aortic arch to the skull base. Images are reviewed in the axial, sagittal, and coronal planes. 3-D MIPS images are created and assessed. IV contrast was administered without complication. All measurements were calculated based on NASCET criteria. A dose lowering technique was utilized adhering to the principles of ALARA. CT DOSE: 1004.98 mGy.cm FINDINGS: Atherosclerosis of the thoracic aortic arch. Three-vessel morphology with patency of the innominate and imaged subclavian arteries. The common carotid arteries are patent. Mild right and moderate left carotid bulb atherosclerosis without significant narrowing. The imaged internal carotid arteries are patent. There is partially imaged narrowing within the supraclinoid segment right ICA which appears to be greater than 50%, better seen on the same day CTA of the head. Dominant left vertebral artery is widely patent. Developmentally diminutive right vertebral artery appears to terminate into the PICA. Multinodular thyroid goiter. Mild pulmonary emphysema. Mild mucosal thickening of the paranasal sinuses. Degenerative changes of the spine without acute fracture. IMPRESSION: 1. Atherosclerosis without aneurysm, dissection, high-grade stenosis or arterial occlusion. 2. 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 Please refer to the CTA head of same day for additional findings. ACT 112: Negative or not required by law. The above report was generated using voice recognition software. It may contain grammatical, syntax or spelling errors. Electronically signed by: Wilfred Yu M.D. 08/18/2024 11:52 AM Discharge Plan Visit Data Chief Complaint: Dizziness Stated Complaint: DIZZINESS ED Provider: Anibal Linder Discharge Problem: Dizziness, Unsteady gait, Elevated blood sugar Forms Stand Alone Forms: [facility] [employer] Prescriptions Prescriptions: No Action coenzyme Q10 [Co Q-10] 100 mg capsule 100 mg PO QAM dutasteride [Avodart] 0.5 mg capsule 0.5 mg PO DAILY Qty: 90 3RF atorvastatin [Lipitor] 20 mg Tablet 20 mg PO HS potassium chloride [K-Tab] 10 mEq tablet extended release 10 meq PO QAM ferrous sulfate [iron] 325 mg (65 mg iron) Tablet 325 mg PO QAM Multivitamin 50 Plus Tablet 1 tab PO QAM amlodipine-benazepril [Lotrel] 10-20 mg capsule 1 cap PO HS diphenhydramine HCl 50 mg Capsule 50 mg PO HS PRN (Reason: Sleep) docusate sodium 100 mg Capsule 100 mg PO QPM PRN (Reason: Constipation) Referrals Referrals: Kira Zapata DO [Primary Care Provider] -
[2024-08-18 11:13] LABS: Basophils # (auto) 0.04 K/uL (0.00-0.20); Basophils % (auto) 0.5 %; Eosinophils # (auto) 0.21 K/uL (0.00-0.50); Eosinophils % (auto) 2.9 %; Hematocrit (blood only) 45.7 % (42.0-52.0); Hemoglobin 15.3 g/dl (14.0-18.0); Immature Granulocytes # (auto) 0.03 K/uL (0.01-0.20); Immature Granulocytes % (auto) 0.4 %; Lymphocytes # (auto) 1.68 K/uL (1.20-3.40); Mean Corpuscular Hemoglobin 30.8 pg (25.0-34.0); Mean Corpuscular Hgb Conc 33.5 g/dL (32.0-36.0); Mean Corpuscular Volume 92.1 fL (80.0-100.0); Mean Platelet Volume 10.2 fL (9.4-12.4); Monocytes # (auto) 0.68 K/uL (0.11-0.59); Monocytes % (auto) 9.3 %; Neutrophils # (auto) 4.67 K/uL (1.40-6.50); Neutrophils % (auto) 63.9 %; Platelet Count 221 K/uL (130-400); RDW Coefficient of Variation 14.8 % (11.5-14.5); RDW Standard Deviation 49.7 fL (36.4-46.3); Red Blood Count 4.96 M/uL (4.70-6.10); White Blood Count 7.31 K/ul (4.8-10.8)
[2024-08-18 11:23] LABS: Albumin Globulin Ratio 1.5 (0.9-2); Albumin Level 4.4 gm/dl (3.4-5.0); BUN Creatinine Ratio 12.1 (10-20); Bilirubin,Total 0.8 mg/dl (0.2-1.0); Calcium 9.5 mg/dl (8.6-10.3); Creatinine Clr Calc Pharmacy 50.9 ml/min; Potassium 3.5 mmol/L (3.5-5.1); Total Protein 7.4 gm/dl (6.0-8.3)
[2024-08-18] MEDS: OPTIRAY 320 125ml IV ONE (11:33)
--- NOTE | 2024-08-18 11:54 | CT Scan Report ---
CT angio neck with con CLINICAL HISTORY: 89 years-old Male with dizzy. Acute dizziness COMPARISON STUDY: CTA head of same day, MRA neck 05/29/2021 TECHNIQUE: Following the IV administration of 1 20 mL of Optiray, CT angiogram of the neck was perfor med from the aortic arch to the skull base. Images are reviewed in the axial, sagittal, and coronal p lanes. 3-D MIPS images are created and assessed. IV contrast was administered without complication. A ll measurements were calculated based on NASCET criteria. A dose lowering technique was utilized adh ering to the principles of ALARA. CT DOSE: 1004.98 mGy.cm FINDINGS: Atherosclerosis of the thoracic aortic arch. Three-vessel morphology with patency of the innominate a nd imaged subclavian arteries. The common carotid arteries are patent. Mild right and moderate left c arotid bulb atherosclerosis without significant narrowing. The imaged internal carotid arteries are p atent. There is partially imaged narrowing within the supraclinoid segment right ICA which appears to be greater than 50%, better seen on the same day CTA of the head. Dominant left vertebral artery is widely patent. Developmentally diminutive right vertebral artery appears to terminate into the PICA. Multinodular thyroid goiter. Mild pulmonary emphysema. Mild mucosal thickening of the paranasal sinus es. Degenerative changes of the spine without acute fracture. IMPRESSION: 1. Atherosclerosis without aneurysm, dissection, high-grade stenosis or arterial occlusion. 2. 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 Please refer to the CTA head of for additional findings. ACT 112: Negative or not required by law. The above report was generated using voice recognition software. It may contain grammatical, syntax o r spelling errors. Electronically signed by: Wilfred Yu M.D. 08/18/2024 11:52 AM
--- NOTE | 2024-08-18 12:00 | CT Scan Report ---
CT angio head wo/w CLINICAL HISTORY: dizzy TECHNIQUE: Contiguous axial CT images of the head were acquired from the base of the skull to the tianna gus without intravenous contrast administration. CT angiography of the head was performed following intravenous administration of iodinated contrast. Coronal and sagittal MIPS were obtained from the ax ial data set and were submitted for review. Automated dose lowering techniques and/or adjustment acc ording to patient size were utilized for this examination. All measurements were calculated based on NASCET criteria. Comparison: Comparison is made to CT head 05/29/2021 FINDINGS: CT head: There is no acute intracranial hemorrhage or evidence of acute territorial infarction. No sh ift of the midline structures, mass effect, or extra-axial abnormalities are shown. CTA Head: The anterior and posterior cerebral circulations are patent. No hemodynamically significan t stenosis, aneurysm, dissection, or arteriovenous malformation is shown. 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 Right vertebral artery termi nates in PICA. IMPRESSION: 1. No acute intracranial hemorrhage, evidence of acute territorial infarction, or other acute intrac ranial disease process. 2. No occlusion, hemodynamically significant stenosis, aneurysm, dissection, or arteriovenous malfor mation in the major intracranial arteries. Assessment of stenosis of the internal carotid arteries is based on NASCET criteria. ACT 112: Negative or not required by law. Electronically signed by: Shashank Campbell M.D. 08/18/2024 11:59 AM
[2024-08-18 12:43] LABS: Troponin I High Sensitivity 7.6 pg/ml (0-20)
[2024-08-18] MEDS: ASPIRIN CHEW 324 MG PO STA (13:25)
--- OUTSIDE RECORDS SUMMARY | 2024-08-18 13:34 | External Medical Summary | Continuity of Care Document ---
Author Name Unknown Organization [facility] [address] [address] [place] [id number] Care Team Providers Care Weight Caller Name Role Phone Kira Zapata Primary Care Physicia n [phone] [id number] Date(s): 07/07/24 - 07/07/24 [facility] [address] [address] [phone] Encounter Diagnosis Body mass index [BMI] 26.0-26.9, adult(Discharge Diagnosis) - 07/07/24 Medicare annual wellness visit, subsequent(Discharge Diagnosis) - 07/07/24 Low back pain with sciatica(Discharge Diagnosis) - 07/07/24 Lower urinary tract symptoms (LUTS)(Discharge Diagnosis) - 07/07/24 Hypokalemia(Discharge Diagnosis) - 07/07/24 Hypertension(Discharge Diagnosis) - 07/07/24 HLD (hyperlipidemia)(Discharge Diagnosis) - 07/07/24 Discharge Disposition: Home or Self Care Attending Physician: DO Zapata Gretchen Elizabeth Allergies, Adverse Reactions, Alerts No Known Allergies Assessment and Plan Extracted from: Title:LBP, HTN, HLD, LUTS, hypok Author:DO Zapata Gretchen Elizabeth Date:07/07/24 1.Medicare annual wellness visit, subsequent 2.Low back pain with sciatica Active, patient struggling with low back pain, worse with standing, maintains walking 4 miles, referral placed to PT, trial of meloxicam 15 mg daily provided, advised againsrusewith other NSAIDs and maintain hydration, kidney function normal on imaging. Will f/u in 3 months. 3.[facility] 4.HLD (hyperlipidemia) [facility], [facility] normal [place] 5.Hypertension Insurance recommended formulary temisartan-amlodipine or amlodipine-valsartan 6.Lower urinary tract symptoms (LUTS) [place] finasteride for enlarged prostate, nocturia twice nightly Immunizations Given and Recorded Vaccine Date Status Refusal Reason RSV vaccine preF3, recombinant 08/09/23 Recorded SARS-CoV-2 mRNA-1273 (6y+ bivalent) 08/05/22 Recor ded tetanus/diphtheria/pertuss, acel (Tdap) 05/23/21 R ecorded tetanus/diphtheria/pertuss, acel (Tdap) 07/03/14 G iven tetanus/diphtheria/pertuss, acel (Tdap) 1 06/23/08 Recorded pneumococcal 23-valent vaccine 04/23/21 Recorded pneumococcal 23-valent vaccine 06/06/09 Recorded pneumococcal 23-valent vaccine 2 06/23/00 Recorded pneumococcal 23-valent vaccine 3 05/23/94 Recorded influenza virus vaccine, inactivated 04/23/21 Igor rded influenza virus vaccine, inactivated 04/23/20 Igor rded influenza virus vaccine, inactivated 04/27/19 Igor rded influenza virus vaccine, inactivated 05/23/18 Igor rded influenza virus vaccine, inactivated 05/13/18 Igor rded influenza virus vaccine, inactivated 05/24/17 Igor rded influenza virus vaccine, inactivated 05/23/16 Igor rded influenza virus vaccine, inactivated 4 06/04/15 Re corded influenza virus vaccine, inactivated 05/15/14 Igor rded influenza virus vaccine, inactivated 04/27/12 Igor rded zoster vaccine, inactivated 5 08/23/18 Recorded zoster vaccine, inactivated 6 08/23/18 Recorded pneumococcal 13-valent vaccine 07/04/15 Given zoster vaccine live 01/03/07 Recorded 1Result Comment: 2021-06-06: Historical information-source unspecified 2Result Comment: 2021-06-06: Historical information-source unspecified 3Result Comment: 2021-06-06: Historical information-source unspecified 4Result Comment: [06/05/2015] This was the Fluzone high dose flu immunization 5Result Comment: [facility] 6Result Comment: [facility] Medications amlodipine-olmesartan 10 mg-20 mg oral tablet Start: 01/03/24 3:41:00 PM EDT, 1 tab, PO, Daily, Disp# 90 tab, Refills: 3, Pharmacy: [facility] Start Date: 01/03/24 Status: Ordered Centrum Silver oral tablet Start: 12/15/11 2:11:00 PM EDT, 1 tab, PO, Daily, No Dosage Noted Start Date: 12/15/11 Status: Ordered clorazepate 7.5 mg oral tablet Start: 06/09/24 11:33:00 AM EDT, 1 tab, PO, Daily, Disp# 90 tab, Refills: 0, PRN: as needed for insomnia, Pharmacy: [facility] Start Date: 06/09/24 Status: Ordered Co-Q10 100 mg oral capsule Start: 12/15/11 2:16:00 PM EDT, 1 cap, PO, Daily Start Date: 12/15/11 Status: Ordered diphenhydrAMINE Start: 07/04/15 10:31:00 AM EST, 25 mg =, PO, qhs, as needed for sleep Start Date: 07/04/15 Status: Ordered dutasteride 0.5 mg oral capsule Start: 07/07/24 2:28:00 PM EST, 1 cap, PO, Daily Start Date: 07/07/24 Status: Ordered Lipitor 20 mg oral tablet Start: 06/26/13 11:04:00 AM EST, 1 tab, PO, Daily Start Date: 06/26/13 Status: Ordered meloxicam 15 mg oral tablet Start: 07/07/24 3:27:00 PM EST, 1 tab, PO, Daily, Disp# 30 tab, Refills: 2, Do not take additional NSAIDs with meloxicam, Pharmacy: [facility] Start Date: 07/07/24 Status: Ordered MiraLax Start: 03/17/22 1:57:00 PM EDT, See Instructions, 17 grams q 3 days Start Date: 03/17/22 Status: Ordered Potassium Chloride (Hhg-Fdnu-Jsn 10) 10 mEq oral tablet, extended release Start: 02/09/24 11:44:00 AM EDT, 1 tab, PO, Daily, Disp# 90 tab, Refills: 3, Pharmacy: [facility] Start Date: 02/09/24 Status: Ordered Mental Status 07/07/24 Barriers to Learning one year None evide nt Communication Barrier Present No Health Literacy Communication Barriers N ever Primary Language Chinese Problem List Condition Confirmation Course Effective Dates Status H ealth Status Informant Atherosclerosis of aorta 1 Confirmed Active Pancreatic cyst Confirmed Active Elevated cholesterol Confirmed Active Encounter for exam following cancer surgery Confirmed Active HLD (hyperlipidemia) Confirmed Active Hypertension Confirmed Active Hypokalemia Confirmed Active Insomnia Confirmed Active Lower urinary tract symptoms (LUTS) Confirmed Active Multiple benign nevi Confirmed Active Patient has active physician orders for life-sustaining treatment (POLST) form Confirmed Active Prediabetes Confirmed Active Seborrheic keratoses Confirmed Active Outside CXR: calcified aortic knob Diagnosis Diagnosis Type Effective Dates Health Status Clinical Service Informant Body mass index [BMI] 26.0-26.9, adult Discharge Diagnosis 07/07/24 Non-Specified Medicare annual wellness visit, subsequent Discharge Diagnosis 07/07/24 Non-Specified Low back pain with sciatica Discharge Diagnosis 07/07/24 Non-Specified Lower urinary tract symptoms (LUTS) Discharge Diagnosis 07/07/24 Non-Specified Hypokalemia Discharge Diagnosis 07/07/24 Non-Specified Hypertension Discharge Diagnosis 07/07/24 Non-Specified HLD (hyperlipidemia) Discharge Diagnosis 07/07/24 Non-Specified Procedures Procedure Date Related Diagnosis Body Site Status MRI of abdomen 1 01/26/23 Complete d Chest X-ray 2 10/23/21 Completed Chest X-ray 3 05/29/21 Completed Chest X-ray 4 05/29/[address] of head 5 05/29/[address] of head 6 05/29/21 Completed KUB X-ray 7 05/29/21 Completed KUB X-ray 8 05/29/21 Completed MR angiography of chest 9 05/29/21 Completed MRI of brain and brain stem without contrast 10 05/29/21 Completed Shave biopsy and cauterizati on of skin 11 01/31/21 Completed MRCP - Magnetic resonance cholangiopancreatography 12 11/27/20 Comp leted Colonoscopy 13 09/25/[address] of head 14 04/22/18 Completed X-ray 15 04/22/18 Completed MRI of abdomen 16 11/30/17 Complet ed Shave biopsy and cauterizati on of skin 17 11/15/17 Completed Chest X-ray - routine 18 08/30/17 Completed Chest X-ray - routine 19 08/27/[address] of pancreas with contrast 20 05/06/17 Completed US abdominal scan 04/20/17 Comp leted Shave biopsy and cauterization of skin 04/25/13 Completed Punch biopsy of skin 01/15/12 Comp leted Colonoscopy 2009 Completed Small Bladder Tumor 2007 Compl eted Cataract 22 Completed 11. 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 according to Fukuoka criteria. MRCP can be performed ever 2 years if unchanged 2. hepatic and renal cysts 2Impression: No acute chest disease 3no actue cardiopulmonary findgins 4Impression: No acute cardiopulmonary findings. 51. no acute intracranial hemorrhage or mass effect 2. 9mm hypodensity within the left centrum semiovale ovalae which is new since head CT of 04/22/18. This could reflect an age indeterminate infarct or small vessel disease 6Impression: No auct e intracranial hemorrhage or mass effect. 9 mm hypodensity within the left contrum semiovale ovale which is new since head CT of March. This could reflect an age indeterminate infarct or small vessel disease. 7interval resolution of the dilated gas filled loops of small bowel 8borderline dilated gas filled loops of small bowel within the abdomen . This could represnet a mildileus or low grade partial small bowel obstruction 9unremarkable MRA of the neck 101. no acute intracranial abnormality. no acute of subacute infarct 2. age related involutional changes with chronic microvascular ischemic disease 11w/ ED&C 121) Cholelithiasis without MRI evidence of acute cholecystitis. 2) There is no intra or extrahepatic biliary ductal dilation. 3) There are numerous (greater than 10) simple cystic lesions scattered throught the pancreas. These remaining typcial in appearance for sidebranch IPMNs and have not appreciably changes as compared to 12/19/2018. An additional 2 year f/u could be considered if clincally warranted. 13IMPRESSION: 1) Diverticulitis in the sigmoid colon 2) One 5 mm polyp in the cecum removed with a cold snare. Resected and retrieved. Treated with bipolar cautery 3) A single non-bleeding colonic angioectasia. 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 No worrisome features. Based on the size and appearance, dedicated yearly pancreas CT or MR recommended for the first 2 years since their identification for durveillance subsequently lengthening surveillance if nointerval change per Maryuri criteria. 17right medial chest shave E D & C 18no acute process, no change from prior exam 19no acute cardiopulmonary findings 201. Confirmation of the multiple hypodense lesions seen within the head and body of the pancreas which do not appear to enhance. Therefore, these favor cystic neoplasms such as side branch intraductalpapillary mucinous neoplasms. One year f/u can be performed to ensure stability. 2. Cholelithiasis. 3. 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 4. Mild inflammatory change surrounding a few loops of small bowel within the left side of the abdomen. This favor mild enteritis. 5. Additional findings as described above. 21Cholelithiasis without evidence of acute cholecystitis. Several cystic lesions of pancreas are seen involving body and tail measuring up to 1.7 cm suggestiong sidebranch IPMN's. Can be further evaluated with CT pancreatic protocol if of further clinical concern. Evidence of chronic medical renal disease with moderate left kidney atrophy. Increased echogenicity of liver suggests fatty infiltration with 1.5cm right hepatic lobe cyst. [id number] Vital Signs Most recent to oldest [Reference Range]: 1 Height 171.5 cm (07/07/24 2:33 PM) Patient Weight 76.5 kg (07/07/24 2:33 PM) Body Mass Index 26.01 kg/m2 (07/07/24 2:33 PM) Heart Rate 77 bpm (07/07/24 2:33 PM) Respiratory Rate 18 br/min (07/07/24 2:33 PM) Blood Pressure 136/82mmHg (07/07/24 2:33 PM) BP Location # 1 Left Arm (07/07/24 2:33 PM) Social History Social History Type Response Smoking Status Never smoked cigaret terrence Sex Male Sex Representation Male (finding) [facility]CM Outpt Note * DO Zapata Gretchen Selena: PERFORM Event Display: [facility]CM Outpt Note Authored Date: [id number] Chief Complaint AWV History of Present Illness Takes two alevefor back pain, lower back, worse with standing, achy Some sciatic pain radiating down left leg No weakness or red flags Occurs occasionally No falls [facility] [place] [facility] Review of Systems Pertinent positives and negatives as stated in history of present illness. Physical Exam Vitals & Measurements HR:77(Monitored) RR:18 BP:136/82 SpO2:96% HT:171.5cm WT:76.5kg WT:76.500kg(Dosing) BMI:26.01 PHQ2 Data(Data Documented on:07/07/2024 14:33) Emotional health assessment NEGATIVE Assessment/Plan 1.Medicare annual wellness visit, subsequent 2.Low back pain with sciatica Active, patient struggling with low back pain, worse with standing, maintains walking 4 miles, referral placed to PT, trial of meloxicam 15 mg daily provided, advised againsrusewith other NSAIDs and maintain hydration, kidney function normal on imaging. Will f/u in 3 months. 3.[facility] K [facility] 4.HLD (hyperlipidemia) [facility] 5.Hypertension Insurance recommended formulary temisartan-amlodipine or amlodipine-valsartan 6.Lower urinary tract symptoms (LUTS) [place] finasteride for enlarged prostate, nocturia twice nightly Problem List/Past Medical History Ongoing Atherosclerosis of aorta Elevated cholesterol Encounter for exam following cancer surgery HLD (hyperlipidemia) Hypertension Hypokalemia Insomnia Lower urinary tract symptoms (LUTS) Multiple benign nevi Pancreatic cyst Patient has active physician orders for life-sustaining treatment (POLST) form Prediabetes Seborrheic keratoses Resolved Acrochordon BCC (basal cell carcinoma of skin) Jason angioma Seborrheic keratosis Shingles Trochanteric bursitis, left hip Procedure/Surgical History MRI of abdomen| Service Date: 01/26/2023hest X-ray| Service Date: 10/23/2021MRI of brain and brain stem without contrast| Service Date: 05/29/2021KUB X-ray| Service Date: 05/29/2021KUB X-ray| Service Date: 05/29/2021T of head| Service Date: 05/29/2021hest X-ray| Service Date: 05/29/2021MR angiography of chest| Service Date: 05/29/2021T of head| Service Date: 05/29/2021hest X-ray| Service Date: 05/29/2021have biopsy and cauterization of skin| Service Date: 01/31/2021MRCP - Magnetic resonance cholangiopancreatography| Service Date: 11/27/2020olonoscopy| Service Date: 09/25/2019CT of head| Service Date: 04/22/2018X-ray| Service Date: 04/22/2018MRI of abdomen| Service Date: 11/30/2017Shave biopsy and cauterization of skin| Service Date: 11/15/2017Chest X-ray - routine| Service Date: 08/30/2017Chest X-ray - routine| Service Date: 08/27/2017CT of pancreas with contrast| Service Date: 05/06/2017US abdominal scan| Service Da te: 04/20/2017Shave biopsy and cauterization of skin| Service Date: 04/25/2013Punch biopsy ofskin| Service Date: 01/15/2012Colonoscopy| Service Date: 2009Small Bladder Tumor| Service Date: 2007Cataract Medications amlodipine-olmesartan(amlodipine-olmesartan 10 mg-20 mg oral tablet), 1 tab, PO, Daily atorvastatin(Lipitor 20 mg oral tablet), 20 mg= 1 tab, PO, Daily clorazepate(clorazepate 7.5 mg oral tablet), 7.5 mg= 1 tab, PO, Daily, PRN diphenhydrAMINE, 25 mg, PO, qhs dutasteride(dutasteride 0.5 mg oral capsule), 0.5 mg= 1 cap, PO, Daily meloxicam(meloxicam 15 mg oral tablet), 15 mg= 1 tab, PO, Daily, 2 refills multivitamin with minerals(Centrum Silver oral tablet), 1 tab, PO, Daily polyethylene glycol 3350(MiraLax), See Instructions potassium chloride(Potassium Chloride (Xis-Snls-Nkl 10) 10 mEq oral tablet, extended release), 1 tab, PO, Daily ubiquinone(Co-Q10 100 mg oral capsule), 100 mg= 1 cap, PO, Daily Allergies NKA Social History Smoking Status Never smoked cigarettes Alcohol - Low Risk Exercise - Occasional exercise Home/Environment - Low Risk Substance Abuse - No Risk Tobacco - No Risk Family History Parkinson disease: Brother. Stroke: Father. Health Status Family Member(s) Immunizations Vaccine Date Status RSV vaccine preF3, recombinant 08/09/2023 Recorded SARS-CoV-2 mRNA-1273 (6y+ bivalent) 08/05/2022 Recorded tetanus/diphtheria/pertuss, acel (Tdap) 05/2021 Recorded pneumococcal 23-valent vaccine 04/2021 Recorded influenza virus vaccine, inactivated 04/2021 Recorded influenza virus vaccine, inactivated 04/23/2020 Recorded influenza virus vaccine, inactivated 04/27/2019 Recorded zoster vaccine, inactivated 2018 Recorded Comments : [facility], inactivated 2018 Recorded Comments : [facility] influenza virus vaccine, inactivated 05/23/2018 Recorded influenza virus vaccine, inactivated 05/13/2018 Recorded influenza virus vaccine, inactivated 05/24/2017 Recorded influenza virus vaccine, inactivated 05/2016 Recorded pneumococcal 13-valent vaccine 07/04/2015 Given influenza virus vaccine, inactivated 06/04/2015 Recorded Comments : [06/05/2015] This was the Fluzone high dose flu immunization tetanus/diphtheria/pertuss, acel (Tdap) 07/03/2014 Given influenza virus vaccine, inactivated 05/15/2014 Recorded influenza virus vaccine, inactivated 04/27/2012 Recorded pneumococcal 23-valent vaccine 06/06/2009 Recorded tetanus/diphtheria/pertuss, acel (Tdap) 06/23/2008 Recorded Comments : 2021-06-06: Historical information-source unspecified zoster vaccine live 01/03/2007 Recorded pneumococcal 23-valent vaccine 06/23/2000 Recorded Comments : 2021-06-06: Historical information-source unspecified pneumococcal 23-valent vaccine 05/23/1994 Recorded Comments : 2021-06-06: Historical information-source unspecified Recommendations Health Maintenance Pending(in the next year) OverDue Medicare Annual Wellness Visit due07/02/23and every 1year Adult Influenza Vaccine due02/20/24and every 1year Due Adult COVID-19 Vaccination due07/07/24Unknown Frequency Adult Social Determinants of Health Screening due07/07/24Unknown Frequency Shingles Vaccine due07/07/24One-time only Satisfied(in the past 1 year) Satisfied Body Mass Index on07/07/24.Satisfied by KATH Waters Kyla Electronic Signature on File Electronically Reviewed/Signed by: Kira Zapata D.O. Author Signature Dt/Tm:07/07/2024 05:25 PM Department of Family Medicine [facility] * DO Zapata Gretchen Elizabeth: PERFORM, MODIFY Event Display: Medicare Annual Wellness Visit Note Authored Date: [id number] Name:GIBSON MALONE Patient Number: [id number] : 1935 Date of Service: 07/07/2024 Medicare Annual Wellness Visit Subsequent MAWV: Any MAWV performed after the Initial X_ Additional diagnosis with separately identified service provided per additional note. Vitals & Measurements HR:77(Monitored) RR:18 BP:136/82 SpO2:96% HT:171.5cm WT:76.5kg WT:76.500kg(Dosing) BMI:26.01 The Patient's BMI is over 25 which is considered overweight. X_Based on shared decision-making, no further intervention will be pursued at this time. _This is a chronic problem and is addressed in continuity. _Recommendations for resources, monitoring, support, safety, and surveillance were reviewed. _This warrants further evaluation at a follow-up or concurrent visit. Pain Assessment Pain Score: 0 Pain Severity: No Pain Acceptable pain score: 0 Opioid use Assessment: Opioid use and pain severity reviewed in medication reconciliation and vital signs. Chart review and inquiry of patient finds NO USE of opioids. PHQ2 Data(Data Documented on:07/07/2024 14:33) Emotional health assessment NEGATIVE Patient Self/Mood Assessment: X_ Based on shared decision-making, no further intervention will be pursued at this time. _ This is a chronic problem and is addressed in continuity. _ Recommendations for resources, monitoring, support, safety, and surveillance were reviewed. _ This warrants further evaluation at a follow-up or concurrent visit. Assessment/Plan Hearing Screening Do you have any hearing problems, or have others told you that you might?Left Hearing Aide, RightHearing Aide Comments Struggle to hear/understand conversation? No Have any known hearing problems? No Hearing Assessment PROVIDER DIRECT OBSERVATION-MUST COMPLETE X_No hearing problems were directly observed with this patient today. _Hearing problems were observed with this patient today and the plan is: _. PLAN-MUST COMPLETE FOR POSITIVE FINDING FROM PATIENT OR DIRECT OBSERVATION _XBased on shared decision-making, no further intervention will be pursued at this time. _This is a chronic problem and is addressed in continuity. _Recommendations for resources, monitoring, support, safety, and surveillance were reviewed. _This warrants further evaluation at a follow-up or concurrent visit. Orientation Memory Concentration Test (OMCT) Orientation Score Indication:None or no significant cognitive impairment (0-4) Cognitive Screening (IF OMCT 0-4, no further assessment required) X_Based on shared decision-making, no further intervention will be pursued at this time. _This is a chronic problem and is addressed in continuity. _Recommendations for resources, monitoring, support, safety, and surveillance were reviewed. _This warrants further evaluation at a follow-up or concurrent visit. Activities of Daily Living Assistance Assessment Comments Do you need help using the phone? No Do you need help managing your finances? No Do you need help shopping? (clothes, groceries, etc.) No Do you find you need help that is not available to you? No Do you need help preparing meals? No Do you need help keeping track of and taking your medications? No Do you need help getting to bed or to the toilet? No Do you need help to eat, bathe, or dress? No Do you need help walking? No Do you need help with transportation? No Do you ever go without a seatbelt in the car? No Do you need help with doing housework (cleaning, laundry)? No ADL/IADL Assessment PROVIDER DIRECT OBSERVATION-MUST COMPLETE _The patient did not require help in the office today (e.g. with iADL/ADLs). _Patient required assistance in the office today (e.g. with iADL/ADLs) and the plan is: _. PLAN-MUST COMPLETE FOR POSITIVE FINDING FROM PATIENT OR DIRECT OBSERVATION _Based on shared decision-making, no further intervention will be pursued at this time. _This is a chronic problem and is addressed in continuity. _Recommendations for resources, monitoring, support, safety, and surveillance were reviewed. _This warrants further evaluation at a follow-up or concurrent visit. Falls Assessment Are you permanently unable to walk? No Have you fallen more than once in the past year? No Have you fallen and hurt yourself in the past year? No Is it hard for you to climb stairs or walk short distances? No Do any of these potential fall hazards exist in your home? None Do these safety features exist in your home? (e.g. bathroom grab bars, stair handrails) Bathroom grab bars, Stair handrails Falls Assessment PROVIDER DIRECT OBSERVATION-MUST COMPLETE X_There was no difficulty with the patients ambulation observed today. _The patient was observed to have difficulty with ambulation today. The plan is: _. PLAN-MUST COMPLETE FOR POSITIVE FINDING FROM PATIENT OR DIRECT OBSERVATION X_Based on shared decision-making, no further intervention will be pursued at this time. _This is a chronic problem and is addressed in continuity. _Recommendations for resources, monitoring, support, safety, and surveillance were reviewed. _This warrants further evaluation at a follow-up or concurrent visit. Incontinence Plan Comments Do you have difficulty getting to the bathroom on time? No Do you leak urine when you do not want to, such as when coughing, sneezing, laughing? No Do you leak urine while sleeping? No Incontinence Assessment X_Based on shared decision-making, no further intervention will be pursued at this time. _This is a chronic problem and is addressed in continuity. _Recommendations for resources, monitoring, support, safety, and surveillance were reviewed. _This warrants further evaluation at a follow-up or concurrent visit. Patient Health Self Assessment (Indicate in Comments for each red/positive response an assessment and plan for the patient) COUNSELING/PLAN/REFERRAL Have you seen a dental or orthodontic provider in the last year? Yes Do you always wear a seat belt in moving vehicles? Yes Do you exercise at least 150 minutes a week? Yes Do you consider your diet unhealthy? No Do you use tobacco? No Have you had 5 or more servings of alcohol in one day within the past year? No Do you use illegal street or prescription drugs? No Do you have a new sexual partner this year? No Are you having difficulty completing or enjoying sex? No Would you consider your overall health to be poor? No Do you feel disappointed with your life as it is? No Do you feel you have poor sleep? No Do you often feel lonely? No Do you struggle with your temper? No Does pain impact your life? No Do you often feel tired during the day? No Advance Directive End of Life Discussion Living Will: Living Will (07/03/14) If no qualifying data available, choose a discussion and planning intervention below. Advance directive saved to Electronic Health Record as of date above. Advance Care Planning (ACP) Discussion Did not occur at this visit. Signed POLST today Patient Education Patient walking 4 miles daily. No falls or concerns. Having some LBP, will start PT. Reviewed and signed POLST today. Discussed healthy diet. UTD on vaccines. Language Barrier/Educational Preference Barriers to Learning one year: None evident Communication Barrier Present: No Educational Needs Assessed one year: Yes Health Literacy Communication Barriers: Never Learning Preferences one year: Verbal Explanation, Printed Instructions Primary Language: Chinese Medications The patients preferred pharmacy has been reviewed and confirmed. Home amlodipine-olmesartan(amlodipine-olmesartan 10 mg-20 mg oral tablet), 1 tab, PO, Daily atorvastatin(Lipitor 20 mg oral tablet), 20 mg= 1 tab, PO, Daily clorazepate(clorazepate 7.5 mg oral tablet), 7.5 mg= 1 tab, PO, Daily, PRN diphenhydrAMINE, 25 mg, PO, qhs dutasteride(dutasteride 0.5 mg oral capsule), 0.5 mg= 1 cap, PO, Daily multivitamin with minerals(Centrum Silver oral tablet), 1 tab, PO, Daily polyethylene glycol 3350(MiraLax), See Instructions potassium chloride(Potassium Chloride (Goo-Vksi-Fta 10) 10 mEq oral tablet, extended release), 1 tab, PO, Daily ubiquinone(Co-Q10 100 mg oral capsule), 100 mg= 1 cap, PO, Daily Problem List/Past Medical History Ongoing Atherosclerosis of aorta Elevated cholesterol Encounter for exam following cancer surgery HLD (hyperlipidemia) Hypertension Hypokalemia Insomnia Lower urinary tract symptoms (LUTS) Multiple benign nevi Pancreatic cyst Patient has active physician orders for life-sustaining treatment (POLST) form Prediabetes Seborrheic keratoses Resolved Acrochordon BCC (basal cell carcinoma of skin) Jason angioma Seborrheic keratosis Shingles Trochanteric bursitis, left hip Procedure/Surgical History MRI of abdomen| Service Date: 01/26/2023hest X-ray| Service Date: 10/23/2021MRI of brain and brain stem without contrast| Service Date: 05/29/2021KUB X-ray| Service Date: 05/29/2021KUB X-ray| Service Date: 05/29/2021T of head| Service Date: 05/29/2021hest X-ray| Service Date: 05/29/2021MR angiography of chest| Service Date: 05/29/2021T of head| Service Date: 05/29/2021hest X-ray| Service Date: 05/29/2021have biopsy and cauterization of skin| Service Date: 01/31/2021MRCP - Magnetic resonance cholangiopancreatography| Service Date: 11/27/2020olonoscopy| Service Date: 09/25/2019CT of head| Service Date: 04/22/2018X-ray| Service Date: 04/22/2018MRI of abdomen| Service Date: 11/30/2017Shave biopsy and cauterization of skin| Service Date: 11/15/2017Chest X-ray - routine| Service Date: 08/30/2017Chest X-ray - routine| Service Date: 08/27/2017CT of pancreas with contrast| Service Date: 05/06/2017US abdominal scan| Service Da te: 04/20/2017Shave biopsy and cauterization of skin| Service Date: 04/25/2013Punch biopsy ofskin| Service Date: 01/15/2012Colonoscopy| Service Date: 2009Small Bladder Tumor| Service Date: 2007Cataract Procedure History has not Been Reviewed Open the Table of Contents and Click Histories. Review and Update Procedure Histories as appropriate. Click Finn all as Reviewed. Once reviewed return to this note and click the refresh icon to the right of the Procedure/SurgicalHistory Header to update this section. Family History Parkinson disease: Brother. Stroke: Father. Health Status Family Member(s) Family History has not Been Reviewed Open the Table of Contents and Click Histories. Review and Update Family Histories as appropriate. Click Finn all as Reviewed. Once reviewed return to this note and click the refresh icon to the right of the Family History Header to update this section. Allergies [facility] Care Team Audiology [facility] Other medical providers (e.g. Bridge Mechanic, Orthopedist) Dermatology - Wendy Marie Other team members (e.g. Watch Dial Maker, Home Health Outreach Coordinator) Watch Dial Maker - Dr. Manning Recommendations Health Maintenance Pending(in the next year) OverDue Medicare Annual Wellness Visit due07/02/23and every 1year Adult Influenza Vaccine due02/20/24and every 1year Due Adult COVID-19 Vaccination due07/07/24Unknown Frequency Adult Social Determinants of Health Screening due07/07/24Unknown Frequency Shingles Vaccine due07/07/24One-time only Satisfied(in the past 1 year) Satisfied Body Mass Index on07/07/24.Satisfied by KATH Waters Kyla Health Maintenance Schedule Colorectal Cancer Screening: Completed _ Diabetes screening: Completed _ Cholesterol screening: Completed _ HIV Screening: Deferred _ Hepatitis C Screening: Deferred _ Lung Cancer Screening: N/A _ AAA Screening: N/A _ Mammography: N/A _ Osteoporosis: N/A _ Prostate Cancer Screening: Completed _ Welcome to Medicare ECG Screening: Completed _ Electronic Signature on File Electronically Reviewed/Signed by: Kira Zapata D.O. Author Signature Dt/Tm:07/07/2024 05:28 PM Department of Family Medicine [facility] Patient Care team information Care Team Personnel Name: DO Zapata Gretchen Elizabeth Position: Physician - Family Med Member Role: Primary Care Provider Address: [address] [place] [id number] [place] Care Team Related Persons Name: TRUONG MALONE"
--- NOTE | 2024-08-18 14:59 | History & Physical Report ---
Date of Service August 18, 2024 Assessment & Plan (1) Dizziness: (2) BPH with obstruction/lower urinary tract symptoms: Plan 89-year-old male PMHx of HTN, BPH, and hypercholesterolemia presenting for 2 days of dizziness. 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 No associated weakness or neurological deficits on exam. 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 Denying tinnitus or ear symptoms. No neurological deficits on exam. 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 - Admit - Hemodynamically stable at time of visit; no current complaints - CBC without evidence of anemia, CMP without electrolyte abnormalities; TSH pending; magnesium pending; UA pending; vitamin B12 and D levels pending - Lipids from 2021, pending repeat; A1c in 2020 5.7%, pending repeat - EKG normal sinus rhythm no signs of ischemia, rate around 65 bpm; CT head and CTA head without acute findings; CTA neck with stenosis supraclinoid segment BRI; echo pending - Telestroke consulted, recommended aspirin with admission; received aspirin 81 mg in ED, continue daily - Orthostatic vitals reviewed - Positive results --> Will provide NSS 500mL x 1 - PT/OT consults placed - MRI brain pending #BPH w/ LUTS- Follows with urology, most recent visit 01/2024; unable to tolerate alpha-clotilde secondary to dizziness;Avodart, continue #HTN- Barber, continue Dispo: Admit, possible d/c home next day, PT/OT consulted VTE Prophylaxis: Lovenox Pt unable to verify OTC meds therefore HELD these medications upon admission. This document was dictated utilizing BombBomb. Please excuse any grammatical errors that may be secondary to use of this software. Admission and Anticipated Discharge Date Admission Date: 08/18/2024 History of Present Illness Chief Complaint: Dizziness Primary Care Provider: Kira Zapata DO 89-year-old male PMHx of HTN, BPH, and hypercholesterolemia presenting for 2 days of dizziness. 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 When walking to the bathroom, he had to hold onto multiple things as to not fall because the dizziness was so severe. He went back to bed when he woke up again he had the same symptoms. The symptoms did not resolve even after trying to have an increase in fluid intake. States that he does not feel dizziness when laying or sitting. Does not notice that the dizziness is worse when he goes from sitting/laying to standing. Even after extended periods of time standing, he still has dizziness. Dizziness does not change when turning head. Denies tinnitus or ear symptoms. No additional symptoms to include chest pain, shortness of breath, palpitations, abdominal pain, N/V/D/C, numbness/ting ling, extremity weakness, LOC, or fever/chills. Took a.m. medications. Has not had this happen before. Overall CBC and CMP are grossly WNL. CT head and CTA head had no acute findings neck CTA did reveal partially imaged stenosis of supraclinoid segment right ICA. Please see Dr. Haley's attestation for adjustments/additions to treatment plan. Allergies Allergy/AdvReac Type Severity Reaction Status Date / Time No Known Drug Allergies Allergy Verified 02/10/23 10:13 Home Medications Medication Instructions Recorded Confirmed Type coenzyme Q10 100 mg capsule (Co 100 mg PO QAM 08/10/19 08/18/24 History Q-10) ferrous sulfate 325 mg (65 mg 325 mg PO QAM 02/24/20 08/18/24 History iron) tablet (iron) jcsjzsmolqzg-vitoyoyp-lalgco 1 tab PO QAM 02/24/20 08/18/24 History tablet (Multivitamin 50 Plus tablet) diphenhydramine HCl 50 mg capsule 50 mg PO HS PRN Sleep 02/28/20 08/18/24 History docusate sodium 100 mg capsule 100 mg PO QPM PRN Constipation 05/29/21 08/18/24 History dutasteride 0.5 mg capsule 0.5 mg PO DAILY #90 caps 02/16/24 08/18/24 Rx (Avodart) amlodipine 10 mg-olmesartan 20 mg 1 tab PO DAILY 08/18/24 08/18/24 History tablet clorazepate dipotassium 7.5 mg 7.5 mg PO HS 08/18/24 08/18/24 History tablet potassium chloride 10 mEq 10 meq PO DAILY 08/18/24 08/18/24 History tablet,extended release Past Med/Surg History Problem List Elevated blood sugar (Acute) Unsteady gait (Acute) Dizziness (Acute) BPH with obstruction/lower urinary tract symptoms High cholesterol Near syncope (Acute) DIVINA (acute kidney injury) (Acute) Elevated prostate specific antigen (PSA) Abnormality detected on rectal examination of prostate Epistaxis, recurrent Hypertension (Chronic) Facial swelling (Acute) Medical History Cholelithiasis Abdominal pain, epigastric Lab test negative for COVID-19 virus Dehydration Weakness Blood glucose elevated CVA (cerebral vascular accident) HLD (hyperlipidemia) Hypovolemia Diarrhea BPH with obstruction/lower urinary tract symptoms No pertinent past medical history Surgical History History of bladder surgery removal of tumor-2007 Family History Father Stroke Hypertension Other No family history of bleeding disorder Social History Smoking Status: Never smoker Second Hand Exposure: No; Do You Dip or Chew Tobacco: No; Hx Alcohol Use: Yes Alcohol type: beer and hard liquor Hx Substance Use: No Preferred Language: [place]ill[place] Communication Ability: Effective Chain Hooker Required: No Beliefs That Will Affect Care: None marital status: Current Living Situation: Spouse Current Living Situation Comment: Lives with current occupational status: employed current occupation: alteration tailor Feels Safe at Home: Yes Safety Concerns: Feels Safe At This Time Assistive Devices: Denture - Upper and Glasses Review of Systems Review of Systems: All systems reviewed & are unremarkable except as noted in Subjective Physical Exam Physical Exam: General: No acute distress, well developed. Skin: Warm and dry, without rashes or lesions. No cyanosis or clubbing Head: Normocephalic, atraumatic Eyes: PERRL, conjunctivae clear, sclera non-icteric; EOM intact ENT: External ear and ear canal without swelling; nose atraumatic; good dentition, tongue normal appearance, pharynx normal without tonsillar swelling or exudate Neck: Supple, no LAD; no JVD Cardio: RRR, no M/G/R, S1 and S2 normal Resp: Chest wall symmetric, normal respiratory effort; No respiratory distress, Lungs CTA in all lobes bilaterally, no wheezes, rales, or rhonchi Abdomen: Soft, symmetric, nontender; No visible lesions or scars; no distention; No masses or hepatosplenomegaly; Bowel sounds normoactive MSK: No deformities, full ROM throughout; pulses palpable and equal; no edema. Neuro: Awake, alert II- PERRL, no VF deficits III, IV, - EOMs intact, no deviation, no nystagmus V- Normal sensation in all locations VII- No asymmetry, no nasolabial fold flattening VIII- Normal hearing to speech IX, X- Normal palatal elevation, no ulnar deviation XI- 5/5 head turn + shoulder shrug bilaterally XII- Midline tongue protrusion Motor: 5/5 strength throughout BUE/BLE; no pronator drift Reflexes: WNL throughout, no clonus Sensory: Normal sensation throughout, no hemineglect, Romberg absent Coordination: Normal bagman-sy-ltop, no tremor Gait: Unable to asses Psych: Appropriate mood and affect; good judgement and insight. Wifr present in room at time of visit. Results & Data Results & Data Vital Signs (Past 12 Hours) Vital Signs Temp Pulse Resp BP Pulse Ox O2 Del Method 08/18/24 12:00 59 L 13 95 08/18/24 12:00 151/72 H 08/18/24 12:00 151/72 H 08/18/24 12:00 151/72 H 08/18/24 11:30 132/71 08/18/24 11:00 146/70 H 08/18/24 11:00 146/70 H 08/18/24 10:57 68 14 137/68 96 08/18/24 10:48 Room Air 08/18/24 10:36 65 23 142/74 H 94 08/18/24 10:33 64 15 152/73 H 94 08/18/24 10:29 63 08/18/24 10:12 37 C 65 20 168/84 H 96 Room Air Laboratory Results Reviewed CBC, CMP, troponin Diagnostic Findings Head CTA 08/18/24 11:22 CT angio head wo/w CLINICAL HISTORY: dizzy TECHNIQUE: Contiguous axial CT images of the head were acquired from the base of the skull to the vertex without intravenous contrast administration. CT angiography of the head was performed following intravenous administration of iodinated contrast. Coronal and sagittal MIPS were obtained from the axial data set and were submitted for review. Automated dose lowering techniques and/or adjustment according to patient size were utilized for this examination. All measurements were calculated based on NASCET criteria. Comparison: Comparison is made to CT head 05/29/2021 FINDINGS: CT head: There is no acute intracranial hemorrhage or evidence of acute te rritorial infarction. No shift of the midline structures, mass effect, or extra- axial abnormalities are shown. CTA Head: The anterior and posterior cerebral circulations are patent. No hemodynamically significant stenosis, aneurysm, dissection, or arteriovenous malformation is shown. 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 Right vertebral artery terminates in PICA. IMPRESSION: 1. No acute intracranial hemorrhage, evidence of acute territorial infarction, or other acute intracranial disease process. 2. No occlusion, hemodynamically significant stenosis, aneurysm, dissection, or arteriovenous malformation in the major intracranial arteries. Assessment of stenosis of the internal carotid arteries is based on NASCET criteria. ACT 112: Negative or not required by law. Electronically signed by: Shashank Campbell M.D. 08/18/2024 11:59 AM Neck CTA 08/18/24 11:22 CT angio neck with con CLINICAL HISTORY: 89 years-old Male with dizzy. Acute dizziness COMPARISON STUDY: CTA head of same day, MRA neck 05/29/2021 TECHNIQUE: Following the IV administration of 1 20 mL of Optiray, CT angiogram of the neck was performed from the aortic arch to the skull base. Images are reviewed in the axial, sagittal, and coronal planes. 3-D MIPS images are created and assessed. IV contrast was administered without complication. All measurements were calculated based on NASCET criteria. A dose lowering technique was utilized adhering to the principles of ALARA. CT DOSE: 1004.98 mGy.cm FINDINGS: Atherosclerosis of the thoracic aortic arch. Three-vessel morphology with patency of the innominate and imaged subclavian arteries. The common carotid arteries are patent. Mild right and moderate left carotid bulb atherosclerosis without significant narrowing. The imaged internal carotid arteries are patent. There is partially imaged narrowing within the supraclinoid segment right ICA which appears to be greater than 50%, better seen on the same day CTA of the head. Dominant left vertebral artery is widely patent. Developmentally diminutive right vertebral artery appears to terminate into the PICA. Multinodular thyroid goiter. Mild pulmonary emphysema. Mild mucosal thickening of the paranasal sinuses. Degenerative changes of the spine without acute fracture. IMPRESSION: 1. Atherosclerosis without aneurysm, dissection, high-grade stenosis or arterial occlusion. 2. 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 Please refer to the CTA head of same day for additional findings. ACT 112: Negative or not required by law. The above report was generated using voice recognition software. It may contain grammatical, syntax or spelling errors. Electronically signed by: Wilfred Yu M.D. 08/18/2024 11:52 AM ECG Additional Comments: NSR, inferior and anterior lateral infarct (2005) Rate 65, [place] 170, QRS 94, QT/QTc 4 6/422, PRT */--28 Code Status & VTE Plan Code Status Full VTE Prophylaxis Plan VTE Prophylaxis will be ordered: Yes Supervising Physician Co-Signing Physician Notes MARILEE Monzon Note: I personally saw and examined the patient. I verified all pike points and agree with MARILEE Thompson with the following exceptions and/or additions: S-Pt p/w dizziness only with standing for 2 days, severe. No headache, sinus congestion, ear pain. No dizziness with turning head. He has a h/o dizziness with BPH meds and with meloxicam in the past but has not been taking these meds recently. History and ROS otherwise reviewed as above O- Vitals reviewed Gen: [AAOx3, NAD] HEENT: [anicteric sclerae, EOMI] CV: [RRR no mgr nl S1S2] Pulm: [CTAB no wcr] Abd: [+BS soft NT ND no masses or hernias] Ext: [no edema] Skin: [no rashes, warm/dry] Neuro: [full strength throughout] A/P-89 yo male here with dizziness, orthostatics are positive but given risk factors, need to r/o acute CVA as cause MRI brain, ECHO w/ bubble, lipid panel and add statin if high or if confirmed stroke PT/OT evals ordered Giving gentle NS for orthostasis and repeat orthostatics in AM PG Care Time/CCT Total # of Minutes Spent Total Time Spent with Patient: Total time spent is greater than 50% in coordination of care (as documented) at patient's floor/unit and/or counseling patient: Coding Level of Care Code 99018 INT INP/OBS CARE 3/75MIN Diagnoses Dizziness R42 BPH with obstruction/lower urinary tract symptoms N40.1; N13.8
[2024-08-18 15:13] LABS: Magnesium 2.2 mg/dl (1.7-2.4)
[2024-08-18 15:29] LABS: Thyroid Stimulating Hormone 3.545 uIu/ml (0.300-4.500)
--- NOTE | 2024-08-18 15:59 | Electrocardiogram Report ---
Test Reason : Blood Pressure : */* mmHG Vent. Rate : 65 BPM Atrial Rate : 65 BPM P-R Int : 178 ms QRS Dur : 94 ms QT Int : 406 ms P-R-T Axes : -5 -28 12 degrees QTcB Int : 422 ms Normal sinus rhythm possible Inferior infarct (cited on or before 29-Aug-2005) Anterolateral infarct (cited on or before 29-Aug-2005) Abnormal ECG When compared with ECG of 29-May-2021 10:59, Questionable change in initial forces of Septal leads Nonspecific T wave abnormality, improved in Inferior leads Nonspecific T wave abnormality no longer evident in Lateral leads Confirmed by Sky Bruce ([id number]) on 08/18/2024 3:59:02 PM Referred By: REFERRED SELF Confirmed By: Sky Bruce
--- NOTE | 2024-08-18 16:27 | XCELERA ---
[id number]
[2024-08-18] MEDS ORDERED: POLYETHYLENE (MIRALAX) 17 GM PACK PO PRN (17:43)
[2024-08-18] MEDS: SODIUM CHLORIDE 0.9% 500 ML IV SCH (18:08)
[2024-08-18 19:46] LABS: Appearance Urine Clear (Clear); Bilirubin Urine Negative (Negative); Blood Urine Negative (Negative); Color Urine Yellow; Glucose Urine UA Negative (Negative); Ketones Urine 1+ (Negative); Leukocyte Esterase Urine Negative (Negative); Nitrite Urine Negative (Negative); Protein Urine Negative (Negative); Specific Gravity Urine 1.032 (1.000-1.030); Urobilinogen Urine Negative (Negative); pH Urine 7.5 (4.5-7.5)
--- NOTE | 2024-08-18 19:55 | Magnetic Resonance Report ---
EXAM: MR brain wo con CLINICAL HISTORY: pt c/o dizziness and balance issues x 2 days, no head injury. TECHNIQUE: Different pulse sequences were performed in different planes for the brain without GD-DTPA injection. Images were sent through PACs for interpretation. COMPARISON: None. FINDINGS: No hyperacute or acute infarctions could be detected. Altered deep white matter signals are seen at the forceps minor, forceps major, periventricular, and centrum semiovale regions. These exhibit bright signals on T2 and FLAIR WI and intermediate signals on T1 WI. Findings suggest consequences of small vessel disease, e.g., hypertensive and/or diabetic vasculopathy. Mild widening of the frontoparietal sulci and sylvian fissures, and basal cisterns. Findings Are consistent with a normal aging brain. Normal MRI appearance of the cerebellar parenchymal signals. Normal MRI appearance of the central matamoros matter aggregates. Normal size and configuration of the cerebral ventricles. Normal MRI appearance of different anatomical parts of the brain stem, namely the midbrain, eduarda, and medulla oblongata. Normal MRI appearance of the petrous temporal bones, brainstem, vestibule cochlear nerves, and cerebellopontine angles with no definite masses. No shift of midline structures. No intracerebral or extra-axial hematomas or masses. Normal MRI appearance of orbital structures, both globes, optic nerves, optic chiasm, optic tracts, and optic radiations. The scanned paranasal sinuses are unremarkable. Bilateral cataract surgery. IMPRESSION: 1. No hyperacute or acute infarctions. 2. No intracerebral or extra axial hematoma. 3. Altered deep white matter signals with anatomical distribution and imaging features consistent with the consequences of small vessel disease e.g., hypertensive and/or diabetic vasculopathy.(Fazekas grade 1). 4. Normal aging brain Electronically signed by Enrique Camp 08-18-2024 7:55 PM
[2024-08-18] MEDS: MELATONIN 3 MG TAB PO PRN (21:54)
[2024-08-18 23:24] VITALS: RESP 18
[2024-08-18] MEDS ORDERED: diazePAM 5 MG TABLET PO PRN (23:44)
[2024-08-18] MEDS ORDERED: diazePAM 5 MG TABLET PO SCH (23:45)
[2024-08-19] MEDS: ENOXAPARIN INJ 40 MG/0.4 ML SYR SQ SCH (06:05)
[2024-08-19 06:34] LABS: Basophils # (auto) 0.04 K/uL (0.00-0.20); Basophils % (auto) 0.6 %; Eosinophils # (auto) 0.22 K/uL (0.00-0.50); Eosinophils % (auto) 3.1 %; Hematocrit (blood only) 41.5 % (42.0-52.0); Hemoglobin 14.1 g/dl (14.0-18.0); Immature Granulocytes # (auto) 0.02 K/uL (0.01-0.20); Immature Granulocytes % (auto) 0.3 %; Lymphocytes # (auto) 1.11 K/uL (1.20-3.40); Lymphocytes % (auto) 15.5 %; Mean Corpuscular Hemoglobin 30.9 pg (25.0-34.0); Mean Corpuscular Volume 90.8 fL (80.0-100.0); Mean Platelet Volume 9.9 fL (9.4-12.4); Monocytes # (auto) 0.69 K/uL (0.11-0.59); Monocytes % (auto) 9.7 %; Neutrophils # (auto) 5.07 K/uL (1.40-6.50); Neutrophils % (auto) 70.8 %; Platelet Count 190 K/uL (130-400); RDW Coefficient of Variation 14.7 % (11.5-14.5); RDW Standard Deviation 49.2 fL (36.4-46.3); Red Blood Count 4.57 M/uL (4.70-6.10); White Blood Count 7.15 K/ul (4.8-10.8)
[2024-08-19 06:48] LABS: BUN Creatinine Ratio 17.6 (10-20); Calcium 8.9 mg/dl (8.6-10.3); Chol HDL Ratio 3.4 (0-5); Creatinine Clr Calc Pharmacy 46.8 ml/min; Potassium 3.5 mmol/L (3.5-5.1)
[2024-08-19 07:15] LABS: Estimated Average Glucose 123 mg/dl; Hemoglobin A1C 5.9 % (4.5-5.6)
[2024-08-19 07:52] VITALS: BP 149/85; TEMP 98.2; O2SAT 93
[2024-08-19] MEDS ORDERED: NON-FORMULARY MEDICATION (Ferrous Sulfate [Iron] 325 mg (65 mg iron) Tablet) PO SCH (09:00)
[2024-08-19] MEDS ORDERED: diazePAM 5 MG TABLET PO SCH (09:00)
[2024-08-19] MEDS ORDERED: MELOXICAM 7.5 MG TAB PO SCH (09:00)
[2024-08-19] MEDS ORDERED: NON-FORMULARY MEDICATION (Multivitamin-Minerals-Lutein [Multivitamin 50 Plus] Tablet) PO SCH (09:00)
[2024-08-19] MEDS: LOSARTAN POTASSIUM 50 MG TAB PO SCH (09:20)
[2024-08-19] MEDS: amLODIPine BESYLATE 5 MG TAB PO SCH (09:20)
[2024-08-19] MEDS: ASPIRIN 81 MG ECTAB PO SCH (09:20)
[2024-08-19] MEDS: FINASTERIDE 5 MG TAB PO SCH (09:21)
[2024-08-19] MEDS: POTASSIUM CHLORIDE 10 MEQ TABCR PO SCH (09:22)
[2024-08-19 11:59] VITALS: PULSE 85
--- NOTE | 2024-08-19 11:59 | Discharge Summary ---
Discharge Summary Date of Service August 19, 2024 Principal Dx & Hospital Course #1 = Principal Diagnosis (1) Dizziness: (2) BPH with obstruction/lower urinary tract symptoms: Plan 89-year-old male PMHx of HTN, BPH, and hypercholesterolemia presenting for 2 days of dizziness. States that he went to sleep 2 days [employer] and was feeling fine, but awoke around midnight that night to go to the bathroom and started to feel dizzy. No associated weakness or neurological deficits on exam. 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 #Dizziness/Orthostasis Symptoms starting 2 days [employer]; described as off-balance when standing/walking; initially patient thought he was dehydrated, but symptoms did not resolve with proper hydration. Denying tinnitus or ear symptoms. No neurological deficits on exam. 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 This is not a stroke or TIA as symptoms lasted >48h. Likely peripheral vertigo. Symptoms improved can be discharged #BPH w/ LUTS- Follows with urology, most recent visit 01/2024; unable to tolerate alpha-clotilde secondary to dizziness;Avodart, continue #HTN- Barber, continue Dispo: Admit, possible d/c home next day, PT/OT consulted VTE Prophylaxis: Lovenox Pt unable to verify OTC meds therefore HELD these medications upon admission. Admission HPI Per Admitting Provider 89-year-old male PMHx of HTN, BPH, and hypercholesterolemia presenting for 2 days of dizziness. States that he went to sleep 2 days [employer] and was feeling fine, but awoke around midnight that night to go to the bathroom and started to feel dizzy. When walking to the bathroom, he had to hold onto multiple things as to not fall because the dizziness was so severe. He went back to bed when he woke up again he had the same symptoms. The symptoms did not resolve even after trying to have an increase in fluid intake. States that he does not feel dizziness when laying or sitting. Does not notice that the dizziness is worse when he goes from sitting/laying to standing. Even after extended periods of time standing, he still has dizziness. Dizziness does not change when turning head. Denies tinnitus or ear symptoms. No additional symptoms to include chest pain, shortness of breath, palpitations, abdominal pain, N/V/D/C, num bness/tingling, extremity weakness, LOC, or fever/chills. Took a.m. medications. Has not had this happen before. Overall CBC and CMP are grossly WNL. CT head and CTA head had no acute findings neck CTA did reveal partially imaged stenosis of supraclinoid segment right ICA. Discharge Exam Constitutional WD/WN, vitals as above Neurologic PERRL, EOMI, accommodation nl, no face palsy, no dysarthria CN's II-XI intact bilaterally Discharge Plan Discharge Items Patient Disposition: Home - Self-Care Reason For Visit: CVA WORKUP Discharge Diagnosis: dizziness Activity: Resume your previous activity Non-emergency contact: Primary Care Provider Call non-emergency contact if: you have any medication questions Follow-up/Referrals: Kira Zapata DO [Primary Care Provider] - Diet: Regular Addtl Attending Provider Instructions: This dizziness was likely caused by an inner ear condition. This was not a stroke, nor is this caused by the stenosis in the Right Internal Carotid Artery. Given that we discovered incidentally this stenosis or blockage in the artery, we would recommend: baby aspirin daily. Please followup with your PCP in 1-2 weeks. Pending Studies at Discharge: No Stand-Alone Forms: [facility], Smoking Cessation Medications and DC Order Prescriptions: New aspirin 81 mg Tablet,Delayed Release (Dr/Ec) 81 mg PO DAILY Qty: 30 0RF Continued coenzyme Q10 [Co Q-10] 100 mg capsule 100 mg PO QAM Rx Instructions: Unable to verify OTC meds at this date/time. dutasteride [Avodart] 0.5 mg capsule 0.5 mg PO DAILY Qty: 90 3RF ferrous sulfate [iron] 325 mg (65 mg iron) Tablet 325 mg PO QAM Rx Instructions: Unable to verify OTC meds at this date/time. Multivitamin 50 Plus Tablet 1 tab PO QAM Rx Instructions: Unable to verify OTC meds at this date/time. diphenhydramine HCl 50 mg Capsule 50 mg PO HS PRN (Reason: Sleep) Rx Instructions: Unable to verify OTC meds at this date/time. docusate sodium 100 mg Capsule 100 mg PO QPM PRN (Reason: Constipation) Rx Instructions: Unable to verify OTC meds at this date/time. potassium chloride 10 mEq tablet extended release 10 meq PO DAILY clorazepate dipotassium 7.5 mg tablet 7.5 mg PO HS amlodipine-olmesartan 10-20 mg tablet 1 tab PO DAILY Discharge Orders: Discharge Order (Routine); Ordered 08/19/24 Ordered By: Wilmer Short Admission Data Admit Date/Time: 08/18/24 14:11 Attending Provider: Wilmer Short Admit Provider: Darlene Haley Primary Care Provider: Kira Zapata Other Providers: Darlene Haley Other Interventions: Discharge Summary Assessment (RN) Last Done: 08/19/24 11:58 Hospital Stay Data Consultations 08/18/24 13:15 ED Decision to Admit Stat Diagnostic Imagining Performed 08/18/24 11:22 CT angio head wo/w Stat CT angio neck with con Stat 08/18/24 14:48 MRI Brain [MR brain wo con] Routine Pending Results Patient Have Any Pending Studies at Discharge: No Discharge Instructions Given to Patient (Per Discharging Provider) This dizziness was likely caused by an inner ear condition. This was not a stroke, nor is this caused by the stenosis in the Right Internal Carotid Artery. Given that we discovered incidentally this stenosis or blockage in the artery, we would recommend: baby aspirin daily. Please followup with your PCP in 1-2 weeks. Total Time Total Time Spent Total Time Spent (In Minutes): 32 Coding Level of Care Code 79936 INP/OBS DISCH >30 MIN Diagnoses Dizziness R42 BPH with obstruction/lower urinary tract symptoms N40.1; N13.8
== END 2024-08-19 13:17 | disposition home or self-care (01) ==
LOC: ED 10:17 → 2E 10:17 → SUATTDRO 14:11 → 2E 16:19